=== PATIENT | female | born 1935 | race Caucasian/White ===

== ENCOUNTER → 2016-09-30 | Outpatient (CLI) | payer BC ==
[~2016-09-30] MED LIST: CALCTAB5 PO; CHOL100010 PO; DIPH1LIQ2 PO; FEXO1TAB49 PO; METO1TAB69 PO; MULT-506 PO; SERT1TAB68 PO; SIMV20TA5 PO; WARF5TAB7 PO; [UNRECOGNIZED DRUG - OTHER] PO
--- NOTE | 2016-09-30 15:57 | DIAGNOSTIC IMAGING REPORT ---
RIGHT LOWER EXTREMITY VENOUS DOPPLER HISTORY: Right leg swelling. COMPARISON STUDY: None. FINDINGS: There is normal compressibility, flow, and augmentation within the visualized right lower extremity deep venous system. The posterior tibial vein was unable to visualized. The popliteal vein and calf vessels were not well visualized due to the patient's body habitus but appear to be patent. IMPRESSION: No definite DVT within the visualized right lower extremity Electronically signed by: Dean Palomino M.D. 09/30/2016 3:56 PM Dictated Date/Time: 09/30/2016 3:55 PM
== END | disposition home or self-care (01) ==
LOC: C.ULTR 15:36
PROVIDERS: ATTEND Family Medicine
DX: M79.604 Pain in right leg (principal)

== ENCOUNTER → 2016-11-08 | Outpatient (CLI) | payer BC ==
[~2016-11-08] MED LIST changes: +METO100T44 PO; -METO1TAB69 PO
--- NOTE | 2016-11-08 11:23 | DIAGNOSTIC IMAGING REPORT ---
CHEST 2 VIEWS ROUTINE CLINICAL HISTORY: COUGH/R09.89 ABNORMAL PHYSICAL EXAMINATION COMPARISON STUDY: 05/29/2015, CT scan dated 04/15/2016 FINDINGS: The heart is mildly enlarged. Surgical clips project over the right axillary region. There is mild interstitial thickening similar to the prior study. There is no lobar consolidation. There is an 8 mm opacity near the level the left lateral costophrenic angle. This likely represents a summation. No nodule was visualized in this area on the April 2016 CT scan.[ IMPRESSION: Mild chronic interstitial thickening. No evidence of overt failure. No evidence of acute parenchymal consolidation. Electronically signed by: Manfred Newell M.D. 11/08/2016 11:22 AM Dictated Date/Time: 11/08/2016 11:20 AM
== END | disposition home or self-care (01) ==
LOC: C.RAD1850 11:04
PROVIDERS: ATTEND Nurse Practitioner Family
DX: R05 Cough (principal); R09.89 Other specified symptoms and signs involving the circulatory and respiratory systems

== ENCOUNTER → 2016-12-13 | Outpatient (CLI) | payer BC | END | disposition home or self-care (01) | LOC: C.MAMM 08:00 | PROVIDERS: ATTEND Family Medicine | DX: Z13.820 Encounter for screening for osteoporosis (principal); M85.851 Other specified disorders of bone density and structure, right thigh ==

== ENCOUNTER → 2017-11-23 | Outpatient (CLI) | payer BC ==
--- NOTE | 2017-11-23 09:37 | DIAGNOSTIC IMAGING REPORT ---
R SHOULDER MIN 2 VIEWS ROUTINE CLINICAL HISTORY: PAIN IN RIGHT SHOULDER pain COMPARISON: None. DISCUSSION: Mild degenerative changes acromioclavicular as well as glenohumeral joints. Postoperative surgical clips in the right axillary region. Upper right lung is clear. No acute bony abnormality. There is no evidence for soft tissue swelling. IMPRESSION: Mild degenerative change right shoulder. Postoperative soft tissue change right axilla. No acute process. The above report was generated using voice recognition software. It may contain grammatical, syntax or spelling errors. Electronically signed by: Mandeep Lubin M.D. 11/23/2017 9:35 AM Dictated Date/Time: 11/23/2017 9:35 AM
== END | disposition home or self-care (01) ==
LOC: C.RAD1850 09:25
PROVIDERS: ATTEND Family Medicine
DX: M25.511 Pain in right shoulder (principal)

== ENCOUNTER → 2018-02-21 | Outpatient (CLI) | payer BC ==
[2018-02-21 08:15] LABS: BASO % 0.4 %; BASO ABS # 0.02 K/uL (0-0.2); EOS % 3.5 %; EOS ABS # 0.17 K/uL (0-0.5); HEMATOCRIT 41.7 % (37-47); HEMOGLOBIN 13.7 g/dL (12.0-16.0); IG# 0.01 K/uL (0.00-0.02); LYMPH % 24.1 %; LYMPH ABS # 1.18 K/uL (1.2-3.4); MEAN CORPUSCULAR HEMOGLOBIN 31.2 pg (25-34); MEAN CORPUSCULAR HGB CONC 32.9 g/dl (32-36); MEAN PLATELET VOLUME 9.6 fL (7.4-10.4); MONO ABS # 0.39 K/uL (0.11-0.59); NEUT % 63.8 %; NEUT ABS # 3.12 K/uL (1.4-6.5); PLATELET COUNT 186 K/uL (130-400); RED CELL DISTRIBUTION WIDTH CV 13.9 % (11.5-14.5); RED CELL DISTRIBUTION WIDTH SD 48.2 fL (36.4-46.3); WHITE BLOOD COUNT 4.89 K/uL (4.8-10.8)
[2018-02-21 08:36] LABS: ALBUMIN 3.8 gm/dl (3.4-5.0); ALKALINE PHOSPHATASE 56 U/L (45-117); ALT/SGPT 23 U/L (12-78); AST/SGOT 23 U/L (15-37); BLOOD UREA NITROGEN 23 mg/dl (7-18); CALCIUM 8.8 mg/dl (8.5-10.1); CARBON DIOXIDE 29 mmol/L (21-32); GLUCOSE 81 mg/dl (70-99); POTASSIUM 3.9 mmol/L (3.5-5.1); SODIUM 141 mmol/L (136-145); TOTAL PROTEIN 7.6 gm/dl (6.4-8.2)
== END | disposition home or self-care (01) ==
LOC: C.CCL 07:54
PROVIDERS: ATTEND Internal Medicine Hematology & Oncology
DX: C50.912 Malignant neoplasm of unspecified site of left female breast (principal)

== ENCOUNTER 2021-07-11 11:40 | Observation (INO) ==
--- NOTE | 2021-07-11 12:57 | XRay Report ---
XR chest 1V portable HISTORY: weakness COMPARISON: Chest 03/20/2015. FINDINGS: No pneumothorax. No pleural effusions. The heart remains mildly enlarged. Small linear scar like density within the left lower lobe. No new focal lung consolidations to suggest pneumonia. There are surgical clips within the right axilla. No evidence for pulmonary edema. IMPRESSION: No significant change compared to the prior study. No acute process. Stable cardiomegaly. ACT 112: Negative or not required by law. Electronically signed by: Dean Palomino M.D. 07/11/2021 12:56 PM
[2021-07-11 13:29] LABS: Basophils # (auto) 0.01 K/uL (0-0.2); Basophils % (auto) 0.1 %; Hemoglobin 13.8 g/dL (12.0-16.0); Immature Granulocytes # (auto) 0.07 K/uL (0.00-0.02); Immature Granulocytes % (auto) 0.5 %; Lymphocytes % (auto) 2.8 %; Mean Corpuscular Hemoglobin 31.3 pg (25-34); Mean Corpuscular Hgb Conc 32.9 g/dL (32-36); Mean Corpuscular Volume 95.2 fL (80-100); Mean Platelet Volume 9.9 fL (7.4-10.4); Monocytes # (auto) 0.75 K/uL (0.11-0.59); Monocytes % (auto) 5.2 %; Neutrophils # (auto) 13.24 K/uL (1.4-6.5); Neutrophils % (auto) 91.4 %; Platelet Count 159 K/uL (130-400); RDW Coefficient of Variation 14.4 % (11.5-14.5); RDW Standard Deviation 50.8 fL (36.4-46.3); Red Blood Count 4.41 M/uL (4.2-5.4); White Blood Count 14.47 K/uL (4.8-10.8)
--- NOTE | 2021-07-11 13:31 | Emergency Department Note ---
Impression & Plan Cellulitis of right lower extremity, Weakness ED Provider Note Provider: Sean Bullard MD DATE OF SERVICE: 07/11/2021 CHIEF COMPLAINT: Weakness, leg weeping and swelling, confusion HISTORY OF PRESENT ILLNESS: Patient is a 85-year-old female history of CHF, DVT on Coumadin, and [place] area presenting here today via ambulance after becoming somewhat confused earlier in becoming weak. No significant falls reported the patient was lowered to the ground and was unable to get up. Daughter and patient both states that the patient seemed a bit slow and confused earlier little bit better now. Daughter states her speech is low but slurred but that is improved. No significant trauma reported. They have noted some leaking of clear fluid from her right leg overnight as well as significant redness developing here. Patient denies any trauma here. Patient has a history of cellulitis or infections of the leg. Denies any history of diabetes or MRSA to her knowledge. Patient had some nausea earlier as well but denies any now denies any abdominal pain. Denies chest pain or significant shortness of breath at this time. Denies any swelling of the left lower leg but states the right lo wer leg is swollen and again red. REVIEW OF SYSTEMS: A total of 10 review of systems was obtained and negative except as stated above in the HPI. PAST MEDICAL HISTORY: As noted above MEDICATIONS: Reviewed home medications SOCIAL HISTORY: Lives at home with daughter PHYSICAL EXAM: GENERAL: alert and oriented in no acute distress on stretcher Head: normocephalic and atraumatic EYES: No injection, discharge or icterus. NECK: Trachea midline. ENT: Mucous membranes pink and moist. LUNGS: Airway patent. No retractions. Breath sounds clear HEART: Regular rate and rhythm. No chest wall tenderness ABDOMEN: Soft and non-tender, without guarding or rebound. SKIN: Acyanotic, warm, dry EXTREMITIES: Patient with 1+ edema of the right lower extremity with significant erythema from the right midfoot to the proximal right upper leg. No large wounds or fluctuance appreciated. Not significantly tender. No crepitus. Warm to the touch. Left foot is without erythema or significant swelling. NEUROLOGICAL: No focal deficits. No aphasia. No facial droop or slurred speech. Normal strength and tone in the extremities. Sensation to gross touch normal. Ambulatory. EK bpm normal sinus rhythm. No PVC or PAC. No acute ST segment elevation or depression with some nonspecific anterior T wave changes. QTC 450. CONTINUOUS CARDIAC MONITORING: was ordered and showed a heart rate of 60-70s bpm in normal sinus rhythm Patient's laboratory studies and imaging reviewed. Differential includes Fracture, dislocation, contusion, intra-abdominal, pneumothorax, intrathoracic, intracranial, neurologic, compartment syndrome, rhabdomyolysis, as well as other pathologies. IMPRESSION/MEDICAL DECISION MAKING: Some confusion and slurred speech earlier that resolved. Doubt this is acute CVA. Given her anticoagulation status CT the head completed without acute findings per radiology. Blood work obtained. Leukocytosis noted. Right lower leg appears erythematous but I doubt this represent necrotizing fasciitis. No large wound or fluctuance concerning for abscess. Anticoagulated and doubt DVT. Asymmetric swelling with a chest x-ray and BNP lower suspicion for fluid overload at this time. No significant serous discharge from leg appreciated on my exam here but reported by daughter earlier. Question if her symptoms were related to cellulitis and generalized infection. Benign abdomen here on exam today. Again blood work otherwise reassuring and doubt this is ACS or gastroint estinal in nature. Covid test negative. Covered with antibiotics here. While she is somewhat improved now in regards to her weakness/confusion, given her age with her anticoagulation status and weakness earlier as well as significant cellulitis believe intravenous antibiotics and further observation are indicated. The hospitalist was contacted. DIAGNOSIS: Right lower leg cellulitis, weakness DISPOSITION: Hospitalist will evaluate Patient was agreeable with this plan. 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 Beliefs That Will Affect Care: None marital status: / Current Living Situation: Family current occupational status: retired Feels Safe at Home: Yes Assistive Devices: Cane, Glasses and Walker Allergies Allergies Allergy/AdvReac Type Severity Reaction Status Date / Time furosemide Allergy Intermediate HIVES Verified 07/11/21 13:55 capsaicin Allergy Mild HIVES Verified 07/11/21 13:55 diclofenac Allergy Mild HIVES Verified 07/11/21 13:55 Diclopak Allergy Mild HIVES Unverified 12/01/20 13:31 hydrochlorothiazide Allergy Mild RASH Verified 07/11/21 13:55 verapamil Allergy Mild RASH Verified 07/11/21 13:55 pseudoephedrine Allergy Unknown SVT Verified 07/11/21 13:55 Sulfa (Sulfonamide Allergy Unknown "SULFA Verified 07/11/21 13:55 Antibiotics) DRUGS": "HIVES" bupropion Allergy Verified 07/11/21 13:55 Home Meds Home Medications Medication Instructions Recorded Confirmed alendronate 70 mg tablet 70 mg PO WEEKLY tab 03/22/19 07/11/21 cholecalciferol (vitamin D3) 50 2,000 units PO HS tab 03/22/19 07/11/21 mcg (2,000 unit) tablet epinephrine 0.3 mg/0.3 mL See Rx Instructions IM .COMPLEX ea 03/22/19 07/11/21 injection, auto-injector levothyroxine 100 mcg tablet 100 mcg PO QAM tab 03/22/19 07/11/21 metoprolol succinate 100 mg 100 mg PO QAM tab 03/22/19 07/11/21 tablet,extended release 24 hr simvastatin 20 mg tablet 20 mg PO HS tab 03/22/19 07/11/21 calcium carbonate 600 mg-vitamin 1 tab PO HS 05/22/20 07/11/21 D3 5 mcg (200 unit) tablet warfarin 5 mg tablet See Rx Instructions .ROUTE .COMPLEX 05/22/20 07/11/21 multivitamin 1 tab PO DAILY 07/11/21 07/11/21 warfarin 1 mg tablet See Rx Instructions .ROUTE .COMPLEX 07/11/21 07/11/21 Previous Rx's Medication Instructions Recorded omalizumab 150 mg subcutaneous 300 mg SUBCUT Q4WK #2 ea 04/27/21 solution Results & Data (ED) Vital Signs Vital Signs - 24 hr 07/11/21 11:52 07/11/21 13:54 Temperature 36.3 C L Temperature Source Temporal Artery Scan Pulse Rate 76 66 Pulse Rate from SpO2 Sensor 66 Respiratory Rate 20 25 H Respiratory Effort / Characteristics Non-Labored Spontaneous Respiratory Depth Normal Respiratory Pattern Regular Blood Pressure 139/61 143/58 H Blood Pressure Mean 87 86 Pulse Oximetry 94 95 Oxygen Delivery Method Room Air Sepsis Recent Fever Within 48 Hours No Sepsis New/Unexplained Change in Mental Status No Sepsis Action Taken by Nursing No Action Required Laboratory Data Result diagrams: 07/11/21 12:15 07/11/21 12:15 Lab Results 07/11/21 07/11/21 07/11/21 Range/Units 12:15 12:15 12:15 WBC 14.47 H (4.8-10.8) K/uL RBC 4.41 (4.2-5.4) M/uL Hgb 13.8 (12.0-16.0) g/dL Hct 42.0 (37-47) % MCV 95.2 (80-100) fL MCH 31.3 (25-34) pg MCHC 32.9 (32-36) g/dL RDW Std Deviation 50.8 H (36.4-46.3) fL RDW Coeff of Sara 14.4 (11.5-14.5) % Plt Count 159 (130-400) K/uL MPV 9.9 (7.4-10.4) fL Immature Gran % (Auto) 0.5 % Neut % (Auto) 91.4 % Lymph % (Auto) 2.8 % [place] % (Auto) 5.2 % Eos % (Auto) 0.0 % Baso % (Auto) 0.1 % Neut # (Auto) 13.24 H (1.4-6.5) K/uL Lymph # (Auto) 0.40 L (1.2-3.4) K/uL [place] # (Auto) 0.75 H (0.11-0.59) K/uL Eos # (Auto) 0.00 (0-0.5) K/uL Baso # (Auto) 0.01 (0-0.2) K/uL Immature Gran # (Auto) 0.07 H (0.00-0.02) K/uL PT Cancelled INR Cancelled Sodium 137 (136-145) mmol/L Potassium 4.0 (3.5-5.1) mmol/L Chloride 103 (98-107) mmol/L Carbon Dioxide 28 (21-32) mmol/L Anion Gap 6.0 (3-11) BUN 24 H (7-18) mg/dl Creatinine 0.85 (0.6-1.2) mg/dl Est Cr Clr Drug Dosing Not Reportable Est GFR ( Amer) 72.9 ml/min Est GFR (Non-Af Amer) 62.9 ml/min BUN/Creatinine Ratio 27.8 H (10-20) Glucose 106 H (70-99) mg/dl Lactate (0.4-2.0) mmol/L Calcium 9.1 (8.5-10.1) mg/dl Total Bilirubin 0.9 (0.2-1) mg/dl AST 19 (15-37) U/L ALT 22 (12-78) Alkaline Phosphatase 60 (45-117) U/L Troponin I < 0.015 (0-0.045) ng/ml NT-Pro-B Natriuret Pep 1356 (0-1800) pg/ml Total Protein 7.9 (6.4-8.2) gm/dl Albumin 3.5 (3.4-5.0) gm/dl Globulin 4.4 H (2.5-4.0) gm/dl Albumin/Globulin Ratio 0.8 L (0.9-2) Lipase 48 L (73-393) U/L 07/11/21 07/11/21 Range/Units 12:15 14:16 WBC (4.8-10.8) K/uL RBC (4.2-5.4) M/uL Hgb (12.0-16.0) g/dL Hct (37-47) % MCV (80-100) fL MCH (25-34) pg MCHC (32-36) g/dL RDW Std Deviation (36.4-46.3) fL RDW Coeff of Sara (11.5-14.5) % Plt Count (130-400) K/uL MPV (7.4-10.4) fL Immature Gran % (Auto) % Neut % (Auto) % Lymph % (Auto) % [place] % (Auto) % Eos % (Auto) % Baso % (Auto) % Neut # (Auto) (1.4-6.5) K/uL Lymph # (Auto) (1.2-3.4) K/uL [place] # (Auto) (0.11-0.59) K/uL Eos # (Auto) (0-0.5) K/uL Baso # (Auto) (0-0.2) K/uL Immature Gran # (Auto) (0.00-0.02) K/uL PT 33.5 H INR 3.7 H Sodium (136-145) mmol/L Potassium (3.5-5.1) mmol/L Chloride (98-107) mmol/L Carbon Dioxide (21-32) mmol/L Anion Gap (3-11) BUN (7-18) mg/dl Creatinine (0.6-1.2) mg/dl Est Cr Clr Drug Dosing Est GFR ( Amer) ml/min Est GFR (Non-Af Amer) ml/min BUN/Creatinine Ratio (10-20) Glucose (70-99) mg/dl Lactate 1.1 (0.4-2.0) mmol/L Calcium (8.5-10.1) mg/dl Total Bilirubin (0.2-1) mg/dl AST (15-37) U/L ALT (12-78) Alkaline Phosphatase (45-117) U/L Troponin I (0-0.045) ng/ml NT-Pro-B Natriuret Pep (0-1800) pg/ml Total Protein (6.4-8.2) gm/dl Albumin (3.4-5.0) gm/dl Globulin (2.5-4.0) gm/dl Albumin/Globulin Ratio (0.9-2) Lipase (73-393) U/L Administered Medications Discontinued Medications Ceftriaxone Sodium (Rocephin) 2,000 mg in 70 mls @ 140 mls/hr IV NOW STA Stop: 07/11/21 14:23 Last Infusion: 07/11/21 14:54 Dose: 0 mls/hr Documented by: [id number] Admin: 07/11/21 14:09 Dose: 140 mls/hr Documented by: [id number] Vancomycin HCl 2,000 mg/ (Sodium Chloride) 540 mls @ 200 mls/hr IV NOW ONE Stop: 07/11/21 17:01 Last Admin: 07/11/21 15:43 Dose: Not Given Documented by: [id number] Imaging Data Radiologist's Impression: Chest X-Ray 07/11/21 12:42 XR chest 1V portable HISTORY: weakness COMPARISON: Chest 03/20/2015. FINDINGS: No pneumothorax. No pleural effusions. The heart remains mildly enlarged. Small linear scarlike density within the left lower lobe. No new focal lung consolidations to suggest pneumonia. There are surgical clips within the right axilla. No evidence for pulmonary edema. IMPRESSION: No significant change compared to the prior study. No acute process. Stable cardiomegaly. ACT 112: Negative or not required by law. Electronically signed by: Dean Palomino M.D. 07/11/2021 12:[address] 07/11/21 12:[address] DOSE: 614.27 mGy.cm HISTORY: weakness on coumadin TECHNIQUE: Multiaxial CT images of the head were performed without the use of intravenous contrast. Automated exposure control was utilized for this study. A dose lowering technique was utilized adhering to the principles of ALARA. Comparison: Head CT 10/06/2020. Findings: The paranasal sinuses and mastoid air cells are clear. The calvarium and skull base are intact. There is no mass, hematoma, midline shift, acute infarct. White matter hypodensity is nonspecific but suggestive of microvascular ischemic change. The ventricles and sulci demonstrate mild age-related involutional changes. Impression: No significant change compared to the prior study. No acute intracranial abnormality. ACT 112: Negative or not required by law. Electronically signed by: Dean Palomino M.D. 07/11/2021 1:40 PM Venous Doppler Study 07/11/21 15:08 RIGHT LOWER EXTREMITY VENOUS DOPPLER CLINICAL HISTORY: Right lower extremity pain and erythema. COMPARISON STUDY: Right lower extremity venous Doppler ultrasound September 30, 2016. TECHNIQUE: Sonography of the deep venous system of the right lower extremity was performed. Compression and augmentation were evaluated. FINDINGS: The right common femoral, superficial femoral and popliteal veins were compressible. Augmentation was normal. Flow was shown within the deep calf vessels although the calf vessels were suboptimally assessed on this exam. IMPRESSION: No evidence of deep venous thrombus within the right lower extremity. ACT 112: Negative or not required by law. Electronically signed by: Juan Carlos Chávez M.D. 07/11/2021 4:10 PM Discharge Plan Visit Data Chief Complaint: Illness ED Provider: Sean Bullard Discharge Problem: Cellulitis of right lower extremity, Weakness Patient Disposition: Admitted As Inpatient Discharge Instructions Interventions: ED Discharge Assessment Last Done: 07/11/21 17:32
--- NOTE | 2021-07-11 13:41 | CT Scan Report ---
HEAD CT NONCONTRAST CT DOSE: 614.27 mGy.cm HISTORY: weakness on coumadin TECHNIQUE: Multiaxial CT images of the head were performed without the use of intravenous contrast. A utomated exposure control was utilized for this study. A dose lowering technique was utilized adheri ng to the principles of ALARA. Comparison: Head CT 10/06/2020. Findings: The paranasal sinuses and mastoid air cells are clear. The calvarium and skull base are int act. There is no mass, hematoma, midline shift, acute infarct. White matter hypodensity is nonspecifi c but suggestive of microvascular ischemic change. The ventricles and sulci demonstrate mild age-rela mary carmen involutional changes. Impression: No significant change compared to the prior study. No acute intracranial abnormality. ACT 112: Negative or not required by law. Electronically signed by: Dean Palomino M.D. 07/11/2021 1:40 PM
[2021-07-11 13:48] LABS: Alanine Aminotransferase 22 (12-78); Albumin Level 3.5 gm/dl (3.4-5.0); Aspartate Aminotransferase 19 U/L (15-37); BUN Creatinine Ratio 27.8 (10-20); Blood Urea Nitrogen 24 mg/dl (7-18); Calcium 9.1 mg/dl (8.5-10.1); Carbon Dioxide 28 mmol/L (21-32); Chloride 103 mmol/L (98-107); Est GFR (African American) 72.9 ml/min; Est GFR (Non-African American) 62.9 ml/min; Glucose 106 mg/dl (70-99); Lipase 48 U/L (73-393); Sodium 137 mmol/L (136-145)
[2021-07-11 13:53] LABS: Albumin Globulin Ratio 0.8 (0.9-2); Alkaline Phosphatase 60 U/L (45-117); Bilirubin,Total 0.9 mg/dl (0.2-1); Globulin 4.4 gm/dl (2.5-4.0); NT Pro B Type Natriuretic Pept 1356 pg/ml (0-1800); Total Protein 7.9 gm/dl (6.4-8.2); Troponin I < 0.015 ng/ml (0-0.045)
[2021-07-11] MEDS ORDERED: cefTRIAXone SODIUM 2,000 MG/70 ML BAG IV STA (13:54)
[2021-07-11] MEDS ORDERED: VANCOMYCIN HCL 2,000 MG in SODIUM CHLORIDE 0.9% 500 ML IV ONE (14:20)
[2021-07-11] MEDS ORDERED: VANCOMYCIN CONSULT ACTIVE PRN (14:20)
--- NOTE | 2021-07-11 15:00 | History & Physical Report ---
Date of Service July 11, 2021 Assessment & Plan (1) Cellulitis of right lower extremity: Plan: Ceftriaxone 2g IV daily, no history of MRSA therefore will hokd coverage for this currently PT/OT (2) Fall: Plan: PT/OT Suspect secondary to cellulitis. Consider ankle XR if unable to weight bear however no pain on ankle movements in the ER (3) History of DVT (deep vein thrombosis): Plan: Repeat US venous doppler Continue her chronic warfarin regimen (hold todays dose due to INR 3.7). Repeat tomorrow morning for continued dosing. (4) History of supraventricular tachycardia: Plan: Continue her usual metoprolol succinate 100mg PO daily with hold parameters (5) Hypothyroidism: Plan: TSH with AM labs as none previously on file. Continue levothyroxine 100 mcg PO daily (6) Hyperlipidemia: Plan: Continue simvastatin 20mg PO daily (7) Osteoporosis: Plan: Next due Fosamax on Monday Plan: VTE Prophylaxis - Warfarin (currently supratherapeutic) Diet - regular Disposition - observation status to med/surg Admission and Anticipated Discharge Date Admission Date: July 11, 2021 History of Present Illness Chief Complaint: Fall, cellulitis Primary Care Provider: Freddie Sanabria MD Mohini Sibley is an 85 year old female who presents to the ER via EMS from home due to nausea, vomiting, generalized weakness and discharge from her leg. History was mostly taken from her daughter at bedside. She reports worsening right leg swelling and redness over the last 2 days. She has been getting generally weaker over that time in addition and slipped off her chair this morning prompting her ER visit. She denies any loss of consciousness, dizziness or lightheadedness on standing. No chest pain or shortness of breath. 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 In the ER she was noted to have a RLE cellulitis and started on ceftriaxone 2g IV. She was referred to medicine for admission and ongoing management of this as deemed unsafe to return home at this time. Allergies Allergy/AdvReac Type Severity Reaction Status Date / Time furosemide Allergy Intermediate HIVES Verified 07/11/21 13:55 capsaicin Allergy Mild HIVES Verified 07/11/21 13:55 diclofenac Allergy Mild HIVES Verified 07/11/21 13:55 Diclopak Allergy Mild HIVES Unverified 12/01/20 13:31 hydrochlorothiazide Allergy Mild RASH Verified 07/11/21 13:55 verapamil Allergy Mild RASH Verified 07/11/21 13:55 pseudoephedrine Allergy Unknown SVT Verified 07/11/21 13:55 Sulfa (Sulfonamide Allergy Unknown "SULFA Verified 07/11/21 13:55 Antibiotics) DRUGS": "HIVES" bupropion Allergy Verified 07/11/21 13:55 Home Medications Medication Instructions Recorded Confirmed Type alendronate 70 mg tablet 70 mg PO WEEKLY tab 03/22/19 07/11/21 History cholecalciferol (vitamin D3) 50 2,000 units PO HS tab 03/22/19 07/11/21 History mcg (2,000 unit) tablet epinephrine 0.3 mg/0.3 mL See Rx Instructions IM .COMPLEX ea 03/22/19 07/11/21 History injection, auto-injector levothyroxine 100 mcg tablet 100 mcg PO QAM tab 03/22/19 07/11/21 History metoprolol succinate 100 mg 100 mg PO QAM tab 03/22/19 07/11/21 History tablet,extended release 24 hr simvastatin 20 mg tablet 20 mg PO HS tab 03/22/19 07/11/21 History calcium carbonate 600 mg-vitamin 1 tab PO HS 05/22/20 07/11/21 History D3 5 mcg (200 unit) tablet warfarin 5 mg tablet See Rx Instructions .ROUTE .COMPLEX 05/22/20 07/11/21 History omalizumab 150 mg subcutaneous 300 mg SUBCUT Q4WK #2 ea 04/27/21 07/11/21 Rx solution multivitamin 1 tab PO DAILY 07/11/21 07/11/21 History warfarin 1 mg tablet See Rx Instructions .ROUTE .COMPLEX 07/11/21 07/11/21 History Past Med/Surg History Medical History (Updated 07/12/21 @ 07:11 by Desean Gongora MD) Degenerative arthritis Hx of breast cancer 1985 and surgical intervention and then 1990 and surgical intervention and had chemo Hyperlipidemia Hypertension Hypothyroidism Osteoporosis Spinal stenosis Supraventricular tachycardia takes metoprolol Surgical History H/O mastectomy right and left History of cataract surgery LEFT Hx of colonoscopy Family History Other Hypertension Social History Smoking Status: Never smoker Second Hand Exposure: No; Hx Alcohol Use: No Hx Substance Use: No Preferred Language: Thai Communication Ability: Effective Diet Kitchen Cook Required: No Beliefs That Will Affect Care: None marital status: / Current Living Situation: Family current occupational status: retired Feels Safe at Home: Yes Assistive Devices: Walker Review of Systems Review of Systems: All systems reviewed & are unremarkable except as noted in HPI & below Physical Exam Constitutional: well developed and + morbidly obese; + not well nourished and no acute distress Eyes: PERRL, conjunctivae normal, anicteric sclerae ENMT: external ear and nose normal, oropharynx normal Neck: trachea midline, no thyromegaly Respiratory: normal respiratory effort, lungs clear to auscultation Cardiovascular: Rate/Rhythm: regular rate and regular rhythm Heart Sounds: no murmur Extremities: normal capillary refill and + pedal edema (trace ankles b/l equal); no calf tenderness Gastrointestinal (Abdomen): normal bowel sounds, soft, nontender, no hepatosplenomegaly Musculoskeletal: no cyanosis or clubbing, extremities motor strength 5/5 Skin: + erythema (mid krishna to ankle with associated warmth but no swelling) Neurologic: moves all extremities and awake; no focal motor deficits and not confused Cranial Nerves: PERRL, EOM intact bilaterally, normal facial strength, tongue midline, able to rotate head bilaterally, able to elevate shoulders bilaterally and symmetric palate elevation Psychiatric: A+Ox3, euthymic affect Results & Data Results & Data ([facility]) Vital Signs (Past 12 Hours) Vital Signs Temp Pulse Resp BP Pulse Ox 07/11/21 13:54 66 25 H 143/58 H 95 07/11/21 11:52 36.3 C L 76 20 139/61 94 Laboratory Results Abnormal lab results 07/11/21 07/11/21 07/11/21 Range/Units 12:15 12:15 14:16 WBC 14.47 H (4.8-10.8) K/uL RDW Std Deviation 50.8 H (36.4-46.3) fL Neut # (Auto) 13.24 H (1.4-6.5) K/uL Lymph # (Auto) 0.40 L (1.2-3.4) K/uL [place] # (Auto) 0.75 H (0.11-0.59) K/uL Immature Gran # (Auto) 0.07 H (0.00-0.02) K/uL PT 33.5 H (9.0-12.0) Seconds INR 3.7 H (0.9-1.1) BUN 24 H (7-18) mg/dl BUN/Creatinine Ratio 27.8 H (10-20) Glucose 106 H (70-99) mg/dl Globulin 4.4 H (2.5-4.0) gm/dl Albumin/Globulin Ratio 0.8 L (0.9-2) Lipase 48 L (73-393) U/L Diagnostic Findings HEAD CT NONCONTRAST CT DOSE: 614.27 mGy.cm HISTORY: weakness on coumadin TECHNIQUE: Multiaxial CT images of the head were performed without the use of intravenous contrast. Automated exposure control was utilized for this study. A dose lowering technique was utilized adhering to the principles of ALARA. Comparison: Head CT 10/06/2020. Findings: The paranasal sinuses and mastoid air cells are clear. The calvarium and skull base are intact. There is no mass, hematoma, midline shift, acute infarct. White matter hypodensity is nonspecific but suggestive of microvascular ischemic change. The ventricles and sulci demonstrate mild age-related involutional changes. Impression: No significant change compared to the prior study. No acute intracranial abnormality. XR chest 1V portable HISTORY: weakness COMPARISON: Chest 03/20/2015. FINDINGS: No pneumothorax. No pleural effusions. The heart remains mildly enlarged. Small linear scarlike density within the left lower lobe. No new focal lung consolidations to suggest pneumonia. There are surgical clips within the right axilla. No evidence for pulmonary edema. IMPRESSION: No significant change compared to the prior study. No acute process. Stable cardiomegaly. Medications Administered ER Medications Given: Ceftriaxone 2000mg IV Vancomycin prescribed but not given ECG Rate (beats per minute): 66 Rhythm: normal sinus Findings: + LAFB Comparison ECG Date: from (April 15, 2016) Change: no significant change Code Status & VTE Plan Code Status Full VTE Prophylaxis Plan VTE Prophylaxis will be ordered: Yes PG Care Time/CCT Total # of Minutes Spent Total Time Spent with Patient: Total time spent is greater than 50% in coordination of care (as documented) at patient's floor/unit and/or counseling patient: Coding Level of Care Code INT OBSERVATION CARE 50M LVL 2 Diagnoses Cellulitis of right lower extremity L03.115 History of DVT (deep vein thrombosis) Z86.718 History of supraventricular tachycardia Z86.79 Hypothyroidism E03.9 Fall W19.XXXA Hyperlipidemia E78.5 Osteoporosis M81.0
[2021-07-11 15:08] LABS: INR 3.7 (0.9-1.1); Prothrombin Time 33.5 Seconds (9.0-12.0)
--- NOTE | 2021-07-11 16:11 | Ultrasound Report ---
RIGHT LOWER EXTREMITY VENOUS DOPPLER CLINICAL HISTORY: Right lower extremity pain and erythema. COMPARISON STUDY: Right lower extremity venous Doppler ultrasound September 30, 2016. TECHNIQUE: Sonography of the deep venous system of the right lower extremity was performed. Compress ion and augmentation were evaluated. FINDINGS: The right common femoral, superficial femoral and popliteal veins were compressible. Augme ntation was normal. Flow was shown within the deep calf vessels although the calf vessels were subopt imally assessed on this exam. IMPRESSION: No evidence of deep venous thrombus within the right lower extremity. ACT 112: Negative or not required by law. Electronically signed by: Juan Carlos Chávez M.D. 07/11/2021 4:10 PM
[2021-07-11] MEDS ORDERED: POLYETHYLENE (MIRALAX) 17 GM PACK PO PRN (17:38)
[2021-07-11] MEDS ORDERED: ACETAMINOPHEN 325 MG TAB PO PRN (17:38)
[2021-07-11] MEDS ORDERED: ONDANSETRON INJ 2 MG/ML 2 ML VIAL IV PRN (17:38)
[2021-07-11] MEDS ORDERED: cefTRIAXone SODIUM 2,000 MG in DEXTROSE 5% 50 ML IV SCH (18:00)
[2021-07-11] MEDS: CHOLECALCIFEROL 1,000 UNITS 25 MCG TAB PO SCH (20:36)
[2021-07-11] MEDS: SIMVASTATIN 20 MG TAB PO SCH (20:36)
[2021-07-11] MEDS: CALCIUM 600MG + VIT D 400 IU TAB PO SCH (20:36)
[2021-07-12] MEDS: LEVOTHYROXINE SODIUM 100 MCG TABLET PO SCH (05:50)
[2021-07-12 08:11] LABS: Basophils # (auto) 0.01 K/uL (0-0.2); Basophils % (auto) 0.1 %; Eosinophils # (auto) 0.05 K/uL (0-0.5); Eosinophils % (auto) 0.5 %; Hematocrit (blood only) 38.6 % (37-47); Hemoglobin 12.9 g/dL (12.0-16.0); Immature Granulocytes # (auto) 0.03 K/uL (0.00-0.02); Immature Granulocytes % (auto) 0.3 %; Lymphocytes % (auto) 6.5 %; Mean Corpuscular Hemoglobin 31.9 pg (25-34); Mean Corpuscular Hgb Conc 33.4 g/dL (32-36); Mean Corpuscular Volume 95.3 fL (80-100); Mean Platelet Volume 10.1 fL (7.4-10.4); Monocytes # (auto) 0.72 K/uL (0.11-0.59); Monocytes % (auto) 6.7 %; Neutrophils # (auto) 9.26 K/uL (1.4-6.5); Neutrophils % (auto) 85.9 %; Platelet Count 148 K/uL (130-400); RDW Coefficient of Variation 14.9 % (11.5-14.5); RDW Standard Deviation 52.4 fL (36.4-46.3); Red Blood Count 4.05 M/uL (4.2-5.4); White Blood Count 10.77 K/uL (4.8-10.8)
[2021-07-12 08:19] LABS: INR 3.9 (0.9-1.1); Prothrombin Time 35.2 Seconds (9.0-12.0)
[2021-07-12] MEDS: MULTIVITAMIN TAB PO SCH (08:40)
[2021-07-12] MEDS: METOPROLOL SUCC 50MG EXT REL TAB PO SCH (08:40)
[2021-07-12 09:13] LABS: BUN Creatinine Ratio 31.1 (10-20); Calcium 8.7 mg/dl (8.5-10.1); Creatinine Clr Calc Pharmacy 53.3 ml/min; Est GFR (African American) 71.9 ml/min; Potassium 3.3 mmol/L (3.5-5.1); Thyroid Stimulating Hormone 0.875 uIu/ml (0.300-4.500)
[2021-07-12] MEDS ORDERED: cefTRIAXone SODIUM 2,000 MG in DEXTROSE 5% 50 ML IV SCH (14:00)
--- NOTE | 2021-07-12 14:06 | Hospitalist Progress Note ---
Date of Service July 12, 2021 Assessment & Plan (1) Cellulitis of right lower extremity: Plan: - Site is warm to touch and presented with leukocytosis which has now resolved; patient reporting better movement of her lower extremity which is making it easier to be mobile - Leukocytosis resolved - Continue Rocephin 2 g IV daily and monitor; no H/O MRSA so will hold additional coverage at this time - PT/OT consulted - no inpatient OT needs; awaiting PT evaluation (2) Fall: Plan: - PT/OT - Suspect secondary to cellulitis (3) History of DVT (deep vein thrombosis): Plan: - Repeat US venous doppler - no evidence of DVT - INR elevated at 3.9 - continue to hold Warfarin and recheck in AM (4) History of supraventricular tachycardia: Plan: - Continue metoprolol succinate 100 mg daily (5) Hypothyroidism: Plan: - TSH 0.875 - Continue levothyroxine 100 mcg daily (6) Hyperlipidemia: Plan: - Continue simvastatin 20 mg daily (7) Osteoporosis: Plan: - Fosamax due on Monday Plan: VTE Prophylaxis - Warfarin (currently supratherapeutic) Disposition - Will monitor cellulitis overnight; plan to convert to oral Abx on discharge. Do not anticipate home needs; Possible D/C tomorrow Admission and Anticipated Discharge Date Admission Date: July 11, 2021 Subjective Reports feeling well today. Not having any additional seeping from RLE today. Feels she did well this therapy and able to stand up today and moving better. RLE remains erythematous and warm to touch. INR remains elevated and no signs of bleeding at this time. Review of Systems Review of Systems: All systems reviewed & are unremarkable except as noted in Subjective Physical Exam Physical Exam: PHYSICAL EXAM General Appearance: WDWN in NAD who is A&O x 3 HEENT: Head is normocephalic/atraumatic; Hearing grossly intact; Mucous membranes moist Neck: Supple; Trachea midline; Neg JVD Heart: RRR with no M/G/R Lungs: CTA in all lung garcia bilaterally; Respirations unlabored; Neg accessory muscle use Abdomen: Soft, non-tender, non-distended; Positive BS x 4 quadrants Extremities: Neg cyanosis or edema; Erythema of the RLE warm to touch and present about 2 inch down from the tibial plateau and on the lateral aspect of the RLE; No drainage Neurological: Speech clear; Gross motor/sensory function intact; Neg focal neurologic deficits Psychiatric: Appropriate mood/affect Skin: Normal Color; Warm/Dry; except as described above Results & Data Results & Data ([facility]) Vital Signs (Past 12 Hours) Vital Signs Temp Pulse Resp BP Pulse Ox 07/12/21 06:56 36.7 C 59 L 20 134/72 96 PG Care Time/CCT Total # of Minutes Spent Total Time Spent with Patient: Total time spent is greater than 50% in coordination of care (as documented) at patient's floor/unit and/or counseling patient: Coding Level of Care Code 24888 Subseq Obs Care Lvl 2 Diagnoses Cellulitis of right lower extremity L03.115 Fall W19.XXXA History of DVT (deep vein thrombosis) Z86.718 History of supraventricular tachycardia Z86.79 Hypothyroidism E03.9 Hyperlipidemia E78.5 Osteoporosis M81.0
--- NOTE | 2021-07-12 15:49 | Electrocardiogram Report ---
Test Reason : Blood Pressure : / mmHG Vent. Rate : 066 BPM Atrial Rate : 066 BPM P-R Int : 160 ms QRS Dur : 092 ms QT Int : 430 ms P-R-T Axes : 043 -51 025 degrees QTc Int : 450 ms Poor data quality, interpretation may be adversely affected Normal sinus rhythm Left anterior fascicular block Nonspecific T wave abnormality Abnormal ECG When compared with ECG of 15-APR-2016 09:40, No significant change was found Confirmed by Ramakrishna Gonzalez ([id number]) on 07/12/2021 3:49:19 PM Referred By: REFERRED SELF Confirmed By:Ramakrishna Gonzalez
[2021-07-12] MEDS ORDERED: WARFARIN SOD 5 MG TAB PO SCH (16:00)
[2021-07-12] MEDS: SIMVASTATIN 20 MG TAB PO SCH (20:57)
[2021-07-12] MEDS: CALCIUM 600MG + VIT D 400 IU TAB PO SCH (20:57)
[2021-07-12] MEDS: CHOLECALCIFEROL 1,000 UNITS 25 MCG TAB PO SCH (20:58)
[2021-07-13] MEDS: LEVOTHYROXINE SODIUM 100 MCG TABLET PO SCH (06:11)
[2021-07-13 06:53] LABS: INR 2.6 (0.9-1.1); Prothrombin Time 24.2 Seconds (9.0-12.0)
[2021-07-13] MEDS: METOPROLOL SUCC 50MG EXT REL TAB PO SCH (08:35)
[2021-07-13] MEDS: MULTIVITAMIN TAB PO SCH (08:35)
--- NOTE | 2021-07-13 16:17 | Hospitalist Progress Note ---
Date of Service July 13, 2021 Assessment & Plan (1) Cellulitis of right lower extremity: Plan: - Site is warm to touch and presented with leukocytosis which has now resolved; patient reporting better movement of her lower extremity which is making it easier to be mobile - Leukocytosis resolved - Utilized Rocephin 2 g IV daily will switch to Keflex 500 mg BID for renal dosing; no H/O MRSA so will hold additional coverage at this time and seems to be improving without MRSA coverage - PT/OT consulted - no inpatient PT/OT needs (2) Fall: Plan: - PT/OT - Suspect secondary to cellulitis (3) History of DVT (deep vein thrombosis): Plan: - Repeat US venous doppler - no evidence of DVT - INR now normalized - continue Warfarin and trend INR (4) History of supraventricular tachycardia: Plan: - Continue metoprolol succinate 100 mg daily (5) Hypothyroidism: Plan: - TSH 0.875 - Continue levothyroxine 100 mcg daily (6) Hyperlipidemia: Plan: - Continue simvastatin 20 mg daily (7) Osteoporosis: Plan: - Fosamax due on Monday Plan: VTE Prophylaxis - Warfarin Disposition - Do not anticipate home needs; Possible D/C tomorrow Admission and Anticipated Discharge Date Admission Date: July 11, 2021 Subjective Reports doing well today. Erythema has not expanded and not as red or warm to touch today. Rechecked her this afternoon and continues to feel well. She is tolerating a diet without issue. Ambulating well. No pain in the leg. Review of Systems Review of Systems: All systems reviewed & are unremarkable except as noted in Subjective Physical Exam Physical Exam: PHYSICAL EXAM General Appearance: WDWN in NAD who is A&O x 3 HEENT: Head is normocephalic/atraumatic; Hearing grossly intact; Mucous membranes moist Neck: Supple; Trachea midline; Neg JVD Heart: RRR with no M/G/R Lungs: CTA in all lung garcia bilaterally; Respirations unlabored; Neg accessory muscle use Abdomen: Soft, non-tender, non-distended; Positive BS x 4 quadrants Extremities: Neg cyanosis or edema; Erythema of the RLE not warm to touch today and receding down from the tibial plateau approx 4 inches and on the lateral aspect of the RLE is unchanged but more pink today; No drainage Neurological: Speech clear; Gross motor/sensory function intact; Neg focal neurologic deficits Psychiatric: Appropriate mood/affect Skin: Normal Color; Warm/Dry; except as described above Results & Data Results & Data ([facility]) Vital Signs (Past 12 Hours) Vital Signs Temp Pulse Resp BP BP Pulse Ox 07/13/21 15:26 36.8 C 60 18 163/84 H 96 07/13/21 07:46 37.0 C 54 L 18 124/72 94 PG Care Time/CCT Total # of Minutes Spent Total Time Spent with Patient: Total time spent is greater than 50% in coordination of care (as documented) at patient's floor/unit and/or counseling patient: Coding Level of Care Code 37227 Subseq Hosp Care Lvl 2 Diagnoses Cellulitis of right lower extremity L03.115 Fall W19.XXXA History of DVT (deep vein thrombosis) Z86.718 History of supraventricular tachycardia Z86.79 Hypothyroidism E03.9 Hyperlipidemia E78.5 Osteoporosis M81.0
[2021-07-13] MEDS: cephALEXin 500 MG CAP PO SCH (20:52)
[2021-07-13] MEDS: SIMVASTATIN 20 MG TAB PO SCH (20:52)
[2021-07-13] MEDS: CHOLECALCIFEROL 1,000 UNITS 25 MCG TAB PO SCH (20:52)
[2021-07-13] MEDS: CALCIUM 600MG + VIT D 400 IU TAB PO SCH (20:52)
[2021-07-14] MEDS: LEVOTHYROXINE SODIUM 100 MCG TABLET PO SCH (06:06)
[2021-07-14] MEDS: MULTIVITAMIN TAB PO SCH (08:11)
[2021-07-14] MEDS: cephALEXin 500 MG CAP PO SCH (08:12)
[2021-07-14 08:21] LABS: Prothrombin Time 19.1 Seconds (9.0-12.0)
[2021-07-14 08:38] LABS: Creatinine Clr Calc Pharmacy 55.9 ml/min; Est GFR (African American) 76.2 ml/min; Est GFR (Non-African American) 65.7 ml/min
[2021-07-14] MEDS: METOPROLOL SUCC 50MG EXT REL TAB PO SCH (09:42)
--- NOTE | 2021-07-14 16:01 | Discharge Summary ---
Date of Service July 14, 2021 Admission HPI Per Admitting Provider Mohini Sibley is an 85 year old female who presents to the ER via EMS from home due to nausea, vomiting, generalized weakness and discharge from her leg. History was mostly taken from her daughter at bedside. She reports worsening right leg swelling and redness over the last 2 days. She has been getting generally weaker over that time in addition and slipped off her chair this morning prompting her ER visit. She denies any loss of consciousness, dizziness or lightheadedness on standing. No chest pain or shortness of breath. 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 In the ER she was noted to have a RLE cellulitis and started on ceftriaxone 2g IV. She was referred to medicine for admission and ongoing management of this as deemed unsafe to return home at this time. Principal Diagnosis RLE Cellulitis Discharge Exam PHYSICAL EXAM General Appearance: WDWN in NAD who is A&O x 3 HEENT: Head is normocephalic/atraumatic; Hearing grossly intact; Mucous membranes moist Neck: Supple; Trachea midline; Neg JVD Heart: RRR with no M/G/R Lungs: CTA in all lung garcia bilaterally; Respirations unlabored; Neg accessory muscle use Abdomen: Soft, non-tender, non-distended; Positive BS x 4 quadrants Extremities: Neg cyanosis or edema; Erythema of the RLE not warm to touch today and receding down from the tibial plateau approx 4-5 inches and on the lateral aspect of the RLE is unchanged but more pink today; No drainage; Has chronic venous changes of the krishna that is purple in color Neurological: Speech clear; Gross motor/sensory function intact; Neg focal neurologic deficits Psychiatric: Appropriate mood/affect Skin: Normal Color; Warm/Dry; except as described above Discharge Data Allergies Allergy/AdvReac Type Severity Reaction Status Date / Time furosemide Allergy Intermediate HIVES Verified 07/11/21 13:55 capsaicin Allergy Mild HIVES Verified 07/11/21 13:55 diclofenac Allergy Mild HIVES Verified 07/11/21 13:55 Diclopak Allergy Mild HIVES Unverified 12/01/20 13:31 hydrochlorothiazide Allergy Mild RASH Verified 07/11/21 13:55 verapamil Allergy Mild RASH Verified 07/11/21 13:55 pseudoephedrine Allergy Unknown SVT Verified 07/11/21 13:55 Sulfa (Sulfonamide Allergy Unknown "SULFA Verified 07/11/21 13:55 Antibiotics) DRUGS": "HIVES" bupropion Allergy Verified 07/11/21 13:55 Consultations 07/11/21 14:34 ED Decision to Admit Stat Ordered Studies Chest X-Ray 07/11/21 12:42 XR chest 1V portable HISTORY: weakness COMPARISON: Chest 03/20/2015. FINDINGS: No pneumothorax. No pleural effusions. The heart remains mildly enlarged. Small linear scarlike density within the left lower lobe. No new focal lung consolidations to suggest pneumonia. There are surgical clips within the right axilla. No evidence for pulmonary edema. IMPRESSION: No significant change compared to the prior study. No acute process. Stable cardiomegaly. ACT 112: Negative or not required by law. Electronically signed by: Dean Palomino M.D. 07/11/2021 12:[address] 07/11/21 12:[address] DOSE: 614.27 mGy.cm HISTORY: weakness on coumadin TECHNIQUE: Multiaxial CT images of the head were performed without the use of intravenous contrast. Automated exposure control was utilized for this study. A dose lowering technique was utilized adhering to the principles of ALARA. Comparison: Head CT 10/06/2020. Findings: The paranasal sinuses and mastoid air cells are clear. The calvarium and skull base are intact. There is no mass, hematoma, midline shift, acute infarct. White matter hypodensity is nonspecific but suggestive of microvascular ischemic change. The ventricles and sulci demonstrate mild age-related involutional changes. Impression: No significant change compared to the prior study. No acute intracranial abnormality. ACT 112: Negative or not required by law. Electronically signed by: Dean Palomino M.D. 07/11/2021 1:40 PM Venous Doppler Study 07/11/21 15:08 RIGHT LOWER EXTREMITY VENOUS DOPPLER CLINICAL HISTORY: Right lower extremity pain and erythema. COMPARISON STUDY: Right lower extremity venous Doppler ultrasound September 30, 2016. TECHNIQUE: Sonography of the deep venous system of the right lower extremity was performed. Compression and augmentation were evaluated. FINDINGS: The right common femoral, superficial femoral and popliteal veins were compressible. Augmentation was normal. Flow was shown within the deep calf vessels although the calf vessels were suboptimally assessed on this exam. IMPRESSION: No evidence of deep venous thrombus within the right lower extremity. ACT 112: Negative or not required by law. Electronically signed by: Juan Carlos Chávez M.D. 07/11/2021 4:10 PM Hospital Course (1) Cellulitis of right lower extremity: - Site was warm to touch and presented with leukocytosis; patient reporting better movement of her lower extremity which is making it easier to be mobile - Leukocytosis resolved; Erythema reducing and not warm to touch - Utilized Rocephin 2 g IV daily and switched to Keflex 500 mg BID for renal dosing x 10 additional days; no H/O MRSA so will hold additional coverage at this time and seems to be improving without MRSA coverage -- Recommended leg elevation to assist with keeping swelling down - PT/OT consulted - no inpatient PT/OT needs (2) Fall: - PT/OT - Suspect secondary to cellulitis (3) History of DVT (deep vein thrombosis): - Repeat US venous doppler - no evidence of DVT - INR now normalized - continue Warfarin and trend INR (4) History of supraventricular tachycardia: - Continue metoprolol succinate 100 mg daily (5) Hypothyroidism: - TSH 0.875 - Continue levothyroxine 100 mcg daily (6) Hyperlipidemia: - Continue simvastatin 20 mg daily (7) Osteoporosis: - Fosamax due on Monday VTE Prophylaxis - Warfarin Disposition - Discharged home with oral Abx; F/U next week with PCP prior to Abx completing Total Time Total Time Spent Total Time Spent (In Minutes): Spent greater than 30 minutes preparing patient for discharge. This includes discussion with patient/family, assessment, intervention, medication reconciliation, and coordination of care. Discharge Plan Discharge Items Patient Disposition: Home - Self-Care Reason For Visit: CELLULITIS, FALL Discharge Diagnosis: Cellulitis (Skin Infection) Activity: Resume your previous activity Non-emergency contact: Primary Care Provider Call non-emergency contact if: you have any medication questions, your symptoms worsen and you have a fever Follow-up/Referrals: Freddie Sanabria MD [Primary Care Provider] - 07/21/21 10:30 am (APPT WITH DR ANGELO) Diet: Regular Addtl Attending Provider Instructions: Cellulitis (Skin Infection): - You were admitted for a skin infection of the right leg. Sometimes even the smallest cut in the skin or even very dry skin can allow bacteria to get under the skin causing problems. - You do have some coloration changes that are likely due to what we call venous stasis meaning the veins in the legs are not as good which causes some purple/red coloration to the skin that is there all the time. This can also make you prone to swelling - We are going to continue Keflex (Cephalexin) 500 mg twice a day until July 23. You had one dose this morning so only need to take this once today on 07/14 then resume twice a day on 07/15 until completed. - We did get a follow-up with your family doctor office on the [address] they can look to see if any longer antibiotics are needed or any adjustments - It will be important to also keep your legs elevated when sitting down to help reduce swelling. If compression socks are not a bother you can use those as they can help push any swelling out of the legs and help with better circulation History of Blood Clot: - You had an ultrasound of your right leg and no signs of blood clots were in there. They looked at the flow especially into the deep calf vessels and this shown but they were not as easy to see but they do not see clots. - Did discuss with your family doctor. He would like to review everything before making and decision on blood thinners which is very reasonable and this can be discussed at your next appointment. They may even want to reassess once infection is done with an ultrasound to verify - Infections can make you a little bit more prone to building clots so it may be best to await the infection completion first. Dr. Sanabria though will review - Your INR (Coumadin) level is at 2.0 so continue your home medications as previously prescribed and will need to follow-up with your family doctor office for your next coumadin check Home Medications: - Continue your home medications as previously prescribed. We did not make adjustments to these Pending Studies at Discharge: No Stand-Alone Forms: My [facility] Medications and DC Order Prescriptions: New cephalexin 500 mg Capsule 500 mg PO BID Qty: 19 RF: 0 Continued omalizumab 150 mg recon soln 300 mg subcut Q4WK Qty: 2 RF: 11 epinephrine 0.3 mg/0.3 mL auto-injector See Rx Instructions IM .COMPLEX RF: 0 alendronate 70 mg tablet 70 mg PO WEEKLY RF: 0 levothyroxine 100 mcg tablet 100 mcg PO QAM RF: 0 simvastatin 20 mg tablet 20 mg PO HS RF: 0 metoprolol succinate 100 mg tablet extended release 24 hr 100 mg PO QAM RF: 0 cholecalciferol (vitamin D3) 2,000 unit tablet 2,000 units PO HS RF: 0 calcium carbonate-vitamin D3 600 mg(1,500mg) -200 unit Tablet 1 tab PO HS RF: 0 warfarin 5 mg Tablet See Rx Instructions .ROUTE .COMPLEX RF: 0 multivitamin Tablet 1 tab PO DAILY RF: 0 warfarin 1 mg tablet See Rx Instructions .ROUTE .COMPLEX RF: 0 Discharge Orders: Discharge Order (Routine); Ordered 07/14/21 Ordered By: Fransisca Khoury/Other Patient Handouts: Discharge Instructions for Cellulitis Admission Data Admit Date/Time: 07/13/21 16:07 Attending Provider: Yan Coulter Admit Provider: Desean Gongora Primary Care Provider: Freddie Sanabria Other Providers: Desean Gongora Other Interventions: Discharge Summary Assessment (RN) Last Done: 07/14/21 13:04 Supervising Physician Co-Signing Physician Notes Attending note: patient seen and examined with Fransisca Persaud PA-C. I agree with her discharge summary. I personally reviewed the labs and imaging findings. patient feeling much better, right leg is less red and less warm and pain nearly gone, she says she can now put weight on the right foot which is a big improvement no fever, eating well, breathing stable - RLE cellulitis: responded well to IV antibiotics, discharge home on course of Keflex Coding Level of Care Code D/C DAY MANAGEMENT >30 MINS Diagnoses Cellulitis of right lower extremity L03.115 Fall W19.XXXA History of DVT (deep vein thrombosis) Z86.718 History of supraventricular tachycardia Z86.79 Hypothyroidism E03.9 Hyperlipidemia E78.5 Osteoporosis M81.0
[2021-07-15] MEDS ORDERED: WARFARIN SOD 6 MG TAB PO SCH (16:00)
== END 2021-07-14 16:00 | disposition home or self-care (01) ==
LOC: 3N 11:40 → ED 11:40 → SUATTDRO 15:15 → 3N 17:32

== ENCOUNTER 2024-09-11 03:12 | Inpatient (IN) ==
--- NOTE | 2024-09-11 03:30 | Emergency Department Note ---
Impression & Plan Hypoxia ADMIT ED Provider Note HPI: History obtained from patient and patient's daughter at the bedside. The patient is a 88-year-old female with history of DVT, CHF, presents the emergency department with a chief complaint of dyspnea. Patient presents with her daughter at the bedside, they state that the patient developed cough and shortness of breath over the past several days that acutely worsened overnight to the point where the patient was having difficulty sleeping. Patient denies any chest pain but states she did have some earlier in the night. On arrival here to the ED the patient is stable on nasal cannula oxygen, she was reportedly hypoxic in the field to 83% on room air. Patient otherwise appears to be in no acute distress on my initial assessment, patient is afebrile on arrival. ROS: - Per HPI Differential Diagnosis: Pneumonia, viral upper respiratory infection with cough to include COVID-19, influenza A, acute bronchitis, acute CHF exacerbation, ACS, PE, amongst other potential pathologies. *Outpatient medications and allergy history reviewed. 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 Lab work shows a mild leukopenia at 3.88, hemoglobin is stable at 11.6, platelet count is slightly low at 113, venous blood gas shows a alkalotic pH at 7.45 with a normal pCO2 and normal pCO2. CMP does not show any evidence of any critical findings, troponin is mildly elevated at 14.8, EKG does not show any acute ischemic changes per my interpretation patient denies any current chest pain. Low suspicion for ACS. Viral panel testing was obtained the patient is positive for human metapneumovirus. I suspect this is likely the source of her cough and shortness of breath. Patient was given DuoNeb breathing treatment here in the ED for wheezing and coarse breath sounds, she was also given a dose of IV Solu-Medrol. Overall I suspect that the patient's symptoms are viral in nature, her chest x-ray is suggestive of some right-sided opacities. Will order procalcitonin and defer antibiotics to the inpatient team following my discussion with the on-call hospitalist, Dr. Shaw. Patient and her daughter at the bedside were in agreement for the patient to be admitted and the patient was placed for admission in stable condition. Consultants/Discussions held with other healthcare providers: -Hospitalist, Dr. Shaw Disposition discussion held by myself with: -Patient and patient's daughter at the bedside Critical care time: 36 minutes -Stabilization of hypoxia with a saturation of 86% on room air requiring supplemental oxygen/nasal cannula oxygen for correction, time spent at the bedside, interpretation of diagnostic studies, discussion with other healthcare providers and arrangement of admission. Diagnosis: 1. Hypoxia, acute 2. Human metapneumovirus positive PCR testing, acute 3. Cough, acute 4. Dyspnea, acute 5. Leukopenia, acute 6. Elevated high-sensitivity troponin level, acute Disposition: Admission Mandeep Logan DO Emergency Medicine Past Med/Surg History Problem List (Updated 09/11/24 @ 05:35 by Mandeep Logan DO) Hypoxia (Acute) Chronic idiopathic urticaria COVID-19 (Acute) Osteoporosis Hypothyroidism History of supraventricular tachycardia Hyperlipidemia Hypertension History of DVT (deep vein thrombosis) Cellulitis of right lower extremity (Acute) Encounter for monitoring omalizumab therapy Back pain (Acute) Breast cancer (Chronic ~1985) CHF (congestive heart failure) (Acute) DVT (deep venous thrombosis) (Acute) DVT (deep venous thrombosis) (Acute) Dyspnea (Acute) Intractable pain (Acute) Encounter for pre-operative examination Medical History Fall Weakness Hx of breast cancer Degenerative arthritis Supraventricular tachycardia Spinal stenosis Surgical History History of cataract surgery Hx of colonoscopy H/O mastectomy Family History Other Hypertension Social History Smoking Status: Never smoker Second Hand Exposure: No; Do You Dip or Chew Tobacco: No; Hx Alcohol Use: No Hx Substance Use: No Preferred Language: [place] Communication Ability: Effective 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 Required: No Beliefs That Will Affect Care: None marital status: / Current Living Situation: Family current occupational status: retired Feels Safe at Home: Yes Assistive Devices: Walker Allergies Allergies Allergy/AdvReac Type Severity Reaction Status Date / Time capsaicin Allergy Intermediate HIVES Verified 05/22/24 09:39 diclofenac Allergy Intermediate HIVES Verified 05/22/24 09:39 furosemide Allergy Intermediate HIVES Verified 05/22/24 09:39 hydrochlorothiazide Allergy Intermediate RASH Verified 05/22/24 09:39 Sulfa (Sulfonamide Allergy Intermediate "SULFA Verified 05/22/24 09:39 Antibiotics) DRUGS": "HIVES" verapamil Allergy Intermediate RASH Verified 05/22/24 09:39 bupropion Allergy Unknown Unknown Verified 05/22/24 09:39 pseudoephedrine AdvReac Severe SVT Verified 05/22/24 09:39 Home Meds Home Medications Medication Instructions Recorded Confirmed alendronate 70 mg tablet 70 mg PO WEEKLY 03/22/19 05/22/24 cholecalciferol (vitamin D3) 50 2,000 units PO HS 03/22/19 05/22/24 mcg (2,000 unit) tablet epinephrine 0.3 mg/0.3 mL See Rx Instructions IM .COMPLEX 03/22/19 05/22/24 injection, auto-injector levothyroxine 100 mcg tablet 100 mcg PO QAM 03/22/19 05/22/24 metoprolol succinate 100 mg 100 mg PO QAM 03/22/19 05/22/24 tablet,extended release 24 hr simvastatin 20 mg tablet 20 mg PO HS 03/22/19 05/22/24 calcium 600 mg (as 1 tab PO HS 05/22/20 05/22/24 carbonate)-vitamin D3 5 mcg (200 unit) tablet multivitamin 1 tab PO DAILY 07/11/21 05/22/24 lisinopril 5 mg tablet 5 mg PO DAILY 09/26/21 05/22/24 rivaroxaban 20 mg tablet (Xarelto) 20 mg PO QPM 09/26/21 05/22/24 Previous Rx's Medication Instructions Recorded benzonatate 100 mg capsule 200 mg (2 x 100 mg) PO TID PRN 09/14/22 cough #20 caps dexamethasone 6 mg tablet 6 mg PO DAILY #6 tabs 09/14/22 omalizumab 150 mg subcutaneous 300 mg subcut Q4WK #2 ea 06/14/24 solution Results & Data (ED) Vital Signs Vital Signs - 24 hr 09/11/24 03:19 09/11/24 03:25 09/11/24 03:26 Temperature 37.1 C 37.1 C Temperature Source Oral Oral Pulse Rate 65 66 Pulse Rate [Left Finger] 65 Respiratory Rate 22 22 Blood Pressure 127/59 L Blood Pressure [Left Arm] 127/59 L Blood Pressure Mean 81 Blood Pressure Mean [Left Arm] 81 Pulse Oximetry 96 98 Oxygen Delivery Method Nasal Cannula Nasal Cannula Oxygen Flow Rate 4 4 Sepsis Recent Fever Within 48 Hours No Sepsis New/Unexplained Change in Mental Status No Sepsis Action Taken by Nursing No Action Required 09/11/24 03:34 09/11/24 04:51 Temperature 37.1 C Temperature Source Oral Pulse Rate 65 Pulse Rate [Left Finger] 67 Respiratory Rate 22 25 H Blood Pressure Blood Pressure [Left Arm] 125/60 Blood Pressure Mean Blood Pressure Mean [Left Arm] 81 Pulse Oximetry 98 86 L Oxygen Delivery Method Nasal Cannula Room Air Oxygen Flow Rate 2 Sepsis Recent Fever Within 48 Hours Sepsis New/Unexplained Change in Mental Status Sepsis Action Taken by Nursing Laboratory Data 09/11/24 03:19 09/11/24 03:19 Lab Results 09/11/24 09/11/24 09/11/24 Range/Units 03:19 03:34 03:49 WBC 3.88 L (4.8-10.8) K/ul RBC 3.71 L (4.20-5.40) M/uL Hgb 11.6 L (12.0-16.0) g/dl Hct 35.1 L (37.0-47.0) % MCV 94.6 (80.0-100.0) fL MCH 31.3 (25.0-34.0) pg MCHC 33.0 (32.0-36.0) g/dL RDW Std Deviation 51.3 H (36.4-46.3) fL RDW Coeff of Sara 14.6 H (11.5-14.5) % Plt Count 113 L (130-400) K/uL MPV 10.3 (9.4-12.4) fL Immature Gran % (Auto) 0.3 % Neut % (Auto) 70.8 % Lymph % (Auto) 18.6 % Gilliam % (Auto) 9.5 % Eos % (Auto) 0.5 % Baso % (Auto) 0.3 % Neut # (Auto) 2.75 (1.40-6.50) K/uL Lymph # (Auto) 0.72 L (1.20-3.40) K/uL Gilliam # (Auto) 0.37 (0.11-0.59) K/uL Eos # (Auto) 0.02 (0.00-0.50) K/uL Baso # (Auto) 0.01 (0.00-0.20) K/uL Immature Gran # (Auto) 0.01 (0.01-0.20) K/uL VBG pH 7.45 H (7.36-7.41) VBG pCO2 42 (38-50) mmHg VBG pO2 50 mmHg VBG HCO3 29 mmol/L VBG O2 Saturation 86.4 % VBG Base Excess 4.7 mEq/L Sodium 136 (136-145) mmol/L Potassium 4.0 (3.5-5.1) mmol/L Chloride 104 (98-107) mmol/L Carbon Dioxide 26 (21-32) mmol/L Anion Gap 6 (3-11) BUN 28 H (6-23) mg/dl Creatinine 0.94 (0.6-1.2) mg/dl Est Cr Clr Drug Dosing 45.6 ml/min eGFR 58.73 BUN/Creatinine Ratio 29.8 H (10-20) Glucose 105 H (70-99(Fasting)) mg/dl Calcium 8.6 (8.6-10.3) mg/dl Total Bilirubin 0.7 (0.2-1.0) mg/dl AST 18 (13-39) U/L ALT 9 (7-52) U/L Alkaline Phosphatase 46 (34-104) U/L Troponin I High Sens 14.8 H (0-14) pg/ml B-Natriuretic Peptide 145 H (0-100) pg/ml Total Protein 6.8 (6.0-8.3) gm/dl Albumin 3.7 (3.4-5.0) gm/dl Globulin 3.1 (2.5-4.0) gm/dl Albumin/Globulin Ratio 1.2 (0.9-2) Lipase 8 L (11-82) U/L Adenovirus (PCR) Not Detected (NotDetected) B. pertussis DNA (PCR) Not Detected (NotDetected) B.parapertussis DNA PCR Not Detected (NotDetected) C. pneumoniae DNA (PCR) Not Detected (NotDetected) Coronavirus OC43 (PCR) Not Detected (NotDetected) Coronavirus HKU1 (PCR) Not Detected (NotDetected) Coronavirus 229E (PCR) Not Detected (NotDetected) SARS-CoV-2 (PCR) Not Detected (NotDetected) Coronavirus NL63 (PCR) Not Detected (NotDetected) Human Metapneumovir PCR DETECTED A (NotDetected) Influenza Type A (PCR) Not Detected (NotDetected) Influenza Type B (PCR) Not Detected (NotDetected) M. pneumoniae (PCR) Not Detected (NotDetected) Parainfluenza 1 (PCR) Not Detected (NotDetected) Parainfluenza 2 (PCR) Not Detected (NotDetected) Parainfluenza 3 (PCR) Not Detected (NotDetected) Parainfluenza 4 (PCR) Not Detected (NotDetected) RSV (PCR) Not Detected (NotDetected) Entero/Rhino (PCR) Not Detected (NotDetected) Administered Medications Discontinued Medications Albuterol (Albut/Ipratrop 3mg/0.5mg Neb 3 Ml Vial) 3 ml NEB NOW STA; Protocol Stop: 09/11/24 04:49 Last Admin: 09/11/24 05:07 Dose: 3 ml Documented By: JESSENIA Methylprednisolone (Methylprednisolone 125 Mg/2 Ml Vial) 125 mg IV NOW STA Stop: 09/11/24 04:49 Last Admin: 09/11/24 05:07 Dose: 125 mg Documented By: JESSENIA Imaging Data Radiologist's Impression: Chest X-Ray 09/11/24 03:19 EXAM: XR chest 1V portable CLINICAL HISTORY: Chest pain, nonspecific TECHNIQUE: An X-ray image of the chest is obtained in AP projection. COMPARISON: 09/14/2022 FINDINGS: Pulmonary Parenchyma: Right hilar and lower zone paracardiac newly developed opacities merging with parenchymal reticular pattern. Redemonstration of the right parenchymal atelectatic plates Progression of the bilateral hilar congestion and the parenchyma reticulations more on the right side. No pulmonary nodules are identified. No evidence of pleural effusion or pleural thickening. Heart and Mediastinum:Cardiac enlargement. Stable. Aortic knuckle atheromatous calcification and unfolded aorta stable. No mediastinal widening or masses. No hilar or mediastinal lymphadenopathy. Bony Thorax: Bony thorax appears intact without fractures or deformities. Soft Tissues: Soft tissues overlying the chest wall are unremarkable. Surgical clips is the right axilla. IMPRESSION: 1. Newly developed right hilar and lower zone paracardiac opacities possibly infectious/inflammatory, clinical correlation is advised. 2. Progression of the bilateral parenchyma reticulations. 3. Progression of the bilateral hilar congestion. 4. Cardiomegaly and aortic calcification unchanged since last study. Electronically signed by Delia Nava 09-11-2024 05:25 AM Discharge Plan Visit Data Chief Complaint: Illness Stated Complaint: ILL X 1 WEEK, COUGH, INCREASED WEAKNESS ED Provider: Mandeep Logan Discharge Problem: Hypoxia Forms Stand Alone Forms: My [facility] [email or web address] Prescriptions Prescriptions: No Action omalizumab 150 mg recon soln 300 mg subcut Q4WK Qty: 2 11RF Rx Instructions: APPROVED Approved under pharmacy benefit 04/03/24-06/02/25 Medical benefit 06/12/24-06/11/25 [id number] epinephrine 0.3 mg/0.3 mL auto-injector See Rx Instructions IM .COMPLEX Patient Comments: IM Inject once for anaphylaxis, repeat in 20 minutes as needed; Rx Instructions: IM Inject once for anaphylaxis, repeat in 20 minutes as needed; alendronate 70 mg tablet 70 mg PO WEEKLY Rx Instructions: TAKES SUNDAYS levothyroxine 100 mcg tablet 100 mcg PO QAM simvastatin 20 mg tablet 20 mg PO HS metoprolol succinate 100 mg tablet extended release 24 hr 100 mg PO QAM cholecalciferol (vitamin D3) 2,000 unit tablet 2,000 units PO HS calcium carbonate-vitamin D3 600 mg(1,500mg) -200 unit Tablet 1 tab PO HS multivitamin Tablet 1 tab PO DAILY lisinopril 5 mg tablet 5 mg PO DAILY Xarelto 20 mg tablet 20 mg PO QPM benzonatate 100 mg capsule 200 mg PO TID PRN (Reason: cough) Qty: 20 0RF dexamethasone 6 mg tablet 6 mg PO DAILY Qty: 6 0RF Referrals Referrals: Gary Sanabria MD [Primary Care Provider] -
[2024-09-11 03:48] LABS: Basophils # (auto) 0.01 K/uL (0.00-0.20); Basophils % (auto) 0.3 %; Eosinophils # (auto) 0.02 K/uL (0.00-0.50); Eosinophils % (auto) 0.5 %; Hematocrit (blood only) 35.1 % (37.0-47.0); Hemoglobin 11.6 g/dl (12.0-16.0); Immature Granulocytes # (auto) 0.01 K/uL (0.01-0.20); Immature Granulocytes % (auto) 0.3 %; Lymphocytes # (auto) 0.72 K/uL (1.20-3.40); Lymphocytes % (auto) 18.6 %; Mean Corpuscular Hemoglobin 31.3 pg (25.0-34.0); Mean Corpuscular Volume 94.6 fL (80.0-100.0); Mean Platelet Volume 10.3 fL (9.4-12.4); Monocytes # (auto) 0.37 K/uL (0.11-0.59); Monocytes % (auto) 9.5 %; Neutrophils # (auto) 2.75 K/uL (1.40-6.50); Neutrophils % (auto) 70.8 %; Platelet Count 113 K/uL (130-400); RDW Coefficient of Variation 14.6 % (11.5-14.5); RDW Standard Deviation 51.3 fL (36.4-46.3); Red Blood Count 3.71 M/uL (4.20-5.40); White Blood Count 3.88 K/ul (4.8-10.8)
[2024-09-11 03:56] LABS: Base Excess VBG 4.7 mEq/L; HCO3 VBG 29 mmol/L; Oxygen Saturation VBG 86.4 %; PCO2 VBG 42 mmHg (38-50); PO2 VBG 50 mmHg; pH VBG 7.45 (7.36-7.41)
[2024-09-11 04:00] LABS: Albumin Globulin Ratio 1.2 (0.9-2); Albumin Level 3.7 gm/dl (3.4-5.0); BUN Creatinine Ratio 29.8 (10-20); Bilirubin,Total 0.7 mg/dl (0.2-1.0); Calcium 8.6 mg/dl (8.6-10.3); Creatinine Clr Calc Pharmacy 45.6 ml/min; Globulin 3.1 gm/dl (2.5-4.0); Total Protein 6.8 gm/dl (6.0-8.3)
[2024-09-11 04:06] LABS: Troponin I High Sensitivity 14.8 pg/ml (0-14)
[2024-09-11 04:35] LABS: Adenovirus PCR Not Detected (NotDetected); Bordetella parapertussis PCR Not Detected (NotDetected); Bordetella pertussis PCR Not Detected (NotDetected); Chlamydia pneumoniae PCR Not Detected (NotDetected); Coronavirus 229E PCR Not Detected (NotDetected); Coronavirus CoV-2 (COVID19)PCR Not Detected (NotDetected); Coronavirus HKU1 PCR Not Detected (NotDetected); Coronavirus NL63 PCR Not Detected (NotDetected); Coronavirus OC43PCR Not Detected (NotDetected); Human Metapneumovirus PCR DETECTED (NotDetected); Influenza A PCR Not Detected (NotDetected); Influenza B PCR Not Detected (NotDetected); Mycoplasma pneumoniae PCR Not Detected (NotDetected); Parainfluenza Virus 1 PCR Not Detected (NotDetected); Parainfluenza Virus 2 PCR Not Detected (NotDetected); Parainfluenza Virus 3 PCR Not Detected (NotDetected); Parainfluenza Virus 4 PCR Not Detected (NotDetected); Respiratory Syncytial VirusPCR Not Detected (NotDetected); Rhinovirus/Enterovirus PCR Not Detected (NotDetected)
[2024-09-11] MEDS: methylPREDNISolone 125 MG/2 ML VIAL IV STA (05:07)
[2024-09-11] MEDS: ALBUT/IPRATROP 3MG/0.5MG NEB 3 ML VIAL NEB STA (05:07)
--- NOTE | 2024-09-11 05:11 | History & Physical Report ---
Date of Service September 11, 2024 Assessment & Plan (1) Hypoxia: Plan: 88yo female presenting with 3-4 days of progressive cough and SOB as well as generalized weakness, ambulatory dysfunction, poor appetite and decreased oral intake. Found to have Human Metapneumovirus infection Hypoxic per EMS on arrival at 83% on RA - now on NC with adequate oxygenation -Admit to medical -Maintain isolation precautions -Continue supplemental O2 as needed -Awaiting Procalcitonin results - if ELEVATED would initiate Azithromycin treatment -Tylenol PRN -Albuterol PRN -Tessalon PRN -Zofran PRN -PT/OT evaluation for generalized weakness and ambulatory dysfunction -Repeat troponin x 1 to assess trend. EKG with no ischemic changes Plan Hypothyroidism - chronic, stable -Continue Synthroid 100mcg po daily Hypertension - chronic, stable -Continue Lisinopril 5mg po daily -Continue Metoprolol 100mg po daily History of DVT - chronic, stable -Continue Xarelto 20mg po qPM Anxiety - chronic, stable -Continue Sertraline 100mg po daily Hyperlipidemia - chronic, stable -Continue Simvastatin 20mg po qHS F/E/N - saline lock, encourage fluids, electrolytes WNL, regular diet as tolerated Ppx - Continue Xarelto Code - Full per discussion with patient Dispo - Admit to medical History of Present Illness Chief Complaint: cough, SOB Primary Care Provider: Gary Sanabria MD Mohini Sibley is an 88yo female with history of HTN, HLP, Hypothyroidsim, DVT on Xarelto anticoagulation presenting with cough, congestion and SOB. Patient has been having cough for the last 3-4 days - productive for clear to yellow sputum. She has had generalized weakness with difficulty ambulating, poor appetite and decreased oral intake. This evening patient developed worsening cough and SOB as well as some nausea which brought her to the ER. +sick contacts - family members with similar symptoms EMS reported hypoxia 83% on room air Allergies Allergy/AdvReac Type Severity Reaction Status Date / Time capsaicin Allergy Intermediate HIVES Verified 05/22/24 09:39 diclofenac Allergy Intermediate HIVES Verified 05/22/24 09:39 furosemide Allergy Intermediate HIVES Verified 05/22/24 09:39 hydrochlorothiazide Allergy Intermediate RASH Verified 05/22/24 09:39 Sulfa (Sulfonamide Allergy Intermediate "SULFA Verified 05/22/24 09:39 Antibiotics) DRUGS": "HIVES" verapamil Allergy Intermediate RASH Verified 05/22/24 09:39 bupropion Allergy Unknown Unknown Verified 05/22/24 09:39 pseudoephedrine AdvReac Severe SVT Verified 05/22/24 09:39 Home Medications Medication Instructions Recorded Confirmed Type alendronate 70 mg tablet 70 mg PO WEEKLY 03/22/19 05/22/24 History cholecalciferol (vitamin D3) 50 2,000 units PO HS 03/22/19 05/22/24 History mcg (2,000 unit) tablet epinephrine 0.3 mg/0.3 mL See Rx Instructions IM .COMPLEX 03/22/19 05/22/24 History injection, auto-injector levothyroxine 100 mcg tablet 100 mcg PO QAM 03/22/19 05/22/24 History metoprolol succinate 100 mg 100 mg PO QAM 03/22/19 05/22/24 History tablet,extended release 24 hr simvastatin 20 mg tablet 20 mg PO HS 03/22/19 05/22/24 History calcium 600 mg (as 1 tab PO HS 05/22/20 05/22/24 History carbonate)-vitamin D3 5 mcg (200 unit) tablet multivitamin 1 tab PO DAILY 07/11/21 05/22/24 History lisinopril 5 mg tablet 5 mg PO DAILY 09/26/21 05/22/24 History rivaroxaban 20 mg tablet (Xarelto) 20 mg PO QPM 09/26/21 05/22/24 History benzonatate 100 mg capsule 200 mg (2 x 100 mg) PO TID PRN 09/14/22 05/22/24 Rx cough #20 caps dexamethasone 6 mg tablet 6 mg PO DAILY #6 tabs 09/14/22 05/22/24 Rx omalizumab 150 mg subcutaneous 300 mg subcut Q4WK #2 ea 06/14/24 Rx solution sertraline 100 mg tablet 100 mg PO DAILY 09/11/24 09/11/24 History Past Med/Surg History Problem List Hypoxia (Acute) Chronic idiopathic urticaria COVID-19 (Acute) Osteoporosis Hypothyroidism History of supraventricular tachycardia Hyperlipidemia Hypertension History of DVT (deep vein thrombosis) Cellulitis of right lower extremity (Acute) Encounter for monitoring omalizumab therapy Back pain (Acute) Breast cancer (Chronic ~1985) CHF (congestive heart failure) (Acute) DVT (deep venous thrombosis) (Acute) DVT (deep venous thrombosis) (Acute) Dyspnea (Acute) Intractable pain (Acute) Encounter for pre-operative examination Medical History Fall Weakness Hx of breast cancer 1985 and surgical intervention and then 1990 and surgical intervention and had chemo Degenerative arthritis Supraventricular tachycardia takes metoprolol Spinal stenosis Surgical History History of cataract surgery LEFT Hx of colonoscopy H/O mastectomy right and left Family History Other Hypertension Social History Smoking Status: Never smoker Second Hand Exposure: No; Do You Dip or Chew Tobacco: No; Hx Alcohol Use: No Hx Substance Use: No Preferred Language: Khmer Communication Ability: Effective [employer] Required: No Beliefs That Will Affect Care: None marital status: / Current Living Situation: Family current occupational status: retired Feels Safe at Home: Yes Assistive Devices: Walker Review of Systems Review of Systems: All systems reviewed & are unremarkable except as noted in HPI & below Physical Exam Physical Exam: General: patient resting comfortably, NAD, non-toxic in appearance, AA&O x 4 Skin: warm, dry, intact, no rashes or lesions HEENT: NC/AT, PERRL, EOMI, anicteric sclera, conjunctiva without injection, external ear normal to inspection and nontender, nares patent, moist mucus membranes, dentition intact, no oropharyngeal lesions, neck supple, trachea midline, no LAD, no thyromegaly, no JVD Heart: +S1/S2, regular, no m/r/g Lungs: equal air entry bilaterally, coarse breath sounds bilaterally, no wheezes or rales Abd: +BS, soft, NT/ND, no masses/organomegaly/ascites Ext: warm, 2+ pulses in UE/LE bilaterally, no clubbing/cyanosis or edema, dusky discoloration and venous changes of bilateral LE R > L Neuro: nonfocal, patient AA&O x 4, speech intact, no facial droop, moving all extremities on command with equal strength 5/5 Results & Data Results & Data Vital Signs (Past 12 Hours) Vital Signs Temp Pulse Pulse Resp BP BP Pulse Ox 09/11/24 04:51 37.1 C 67 25 H 125/60 86 L 09/11/24 03:34 65 22 98 09/11/24 03:26 66 09/11/24 03:25 37.1 C 65 22 127/59 L 98 09/11/24 03:19 37.1 C 65 22 127/59 L 96 O2 Del Method O2 Flow Rate 09/11/24 04:51 Room Air 09/11/24 03:34 Nasal Cannula 2 09/11/24 03:26 09/11/24 03:25 Nasal Cannula 4 09/11/24 03:19 Nasal Cannula 4 Laboratory Results Laboratory Results WBC 3.88 K/ul (4.8-10.8) L 09/11/24 03:19 RBC 3.71 M/uL (4.20-5.40) L 09/11/24 03:19 Hgb 11.6 g/dl (12.0-16.0) L 09/11/24 03:19 Hct 35.1 % (37.0-47.0) L 09/11/24 03:19 MCV 94.6 fL (80.0-100.0) 09/11/24 03:19 MCH 31.3 pg (25.0-34.0) 09/11/24 03:19 MCHC 33.0 g/dL (32.0-36.0) 09/11/24 03:19 RDW Std Deviation 51.3 fL (36.4-46.3) H 09/11/24 03:19 RDW Coeff of Sara 14.6 % (11.5-14.5) H 09/11/24 03:19 Plt Count 113 K/uL (130-400) L 09/11/24 03:19 MPV 10.3 fL (9.4-12.4) 09/11/24 03:19 Immature Gran % (Auto) 0.3 % 09/11/24 03:19 Neut % (Auto) 70.8 % 09/11/24 03:19 Lymph % (Auto) 18.6 % 09/11/24 03:19 [place] % (Auto) 9.5 % 02/05/25 03:19 Eos % (Auto) 0.5 % 09/11/24 03:19 Baso % (Auto) 0.3 % 09/11/24 03:19 Neut # (Auto) 2.75 K/uL (1.40-6.50) 09/11/24 03:19 Lymph # (Auto) 0.72 K/uL (1.20-3.40) L 09/11/24 03:19 [place] # (Auto) 0.37 K/uL (0.11-0.59) 09/11/24 03:19 Eos # (Auto) 0.02 K/uL (0.00-0.50) 09/11/24 03:19 Baso # (Auto) 0.01 K/uL (0.00-0.20) 09/11/24 03:19 Immature Gran # (Auto) 0.01 K/uL (0.01-0.20) 09/11/24 03:19 VBG pH 7.45 (7.36-7.41) H 09/11/24 03:49 VBG pCO2 42 mmHg (38-50) 09/11/24 03:49 VBG pO2 50 mmHg 09/11/24 03:49 VBG HCO3 29 mmol/L 09/11/24 03:49 VBG O2 Saturation 86.4 % 09/11/24 03:49 VBG Base Excess 4.7 mEq/L 09/11/24 03:49 Sodium 136 mmol/L (136-145) 09/11/24 03:19 Potassium 4.0 mmol/L (3.5-5.1) 09/11/24 03:19 Chloride 104 mmol/L (98-107) 09/11/24 03:19 Carbon Dioxide 26 mmol/L (21-32) 09/11/24 03:19 Anion Gap 6 (3-11) 09/11/24 03:19 BUN 28 mg/dl (6-23) H 09/11/24 03:19 Creatinine 0.94 mg/dl (0.6-1.2) 09/11/24 03:19 Est Cr Clr Drug Dosing 45.6 ml/min 09/11/24 03:19 eGFR 58.73 09/11/24 03:19 BUN/Creatinine Ratio 29.8 (10-20) H 09/11/24 03:19 Glucose 105 mg/dl (70-99(Fasting)) H 09/11/24 03:19 Calcium 8.6 mg/dl (8.6-10.3) 09/11/24 03:19 Total Bilirubin 0.7 mg/dl (0.2-1.0) 09/11/24 03:19 AST 18 U/L (13-39) 09/11/24 03:19 ALT 9 U/L (7-52) 09/11/24 03:19 Alkaline Phosphatase 46 U/L (34-104) 09/11/24 03:19 Troponin I High Sens 14.8 pg/ml (0-14) H 09/11/24 03:19 B-Natriuretic Peptide 145 pg/ml (0-100) H 09/11/24 03:49 Total Protein 6.8 gm/dl (6.0-8.3) 09/11/24 03:19 Albumin 3.7 gm/dl (3.4-5.0) 09/11/24 03:19 Globulin 3.1 gm/dl (2.5-4.0) 09/11/24 03:19 Albumin/Globulin Ratio 1.2 (0.9-2) 09/11/24 03:19 Lipase 8 U/L (11-82) L 09/11/24 03:19 Adenovirus (PCR) Not Detected (NotDetected) 09/11/24 03:34 B. pertussis DNA (PCR) Not Detected (NotDetected) 09/11/24 03:34 B.parapertussis DNA PCR Not Detected (NotDetected) 09/11/24 03:34 C. pneumoniae DNA (PCR) Not Detected (NotDetected) 09/11/24 03:34 Coronavirus OC43 (PCR) Not Detected (NotDetected) 09/11/24 03:34 Coronavirus HKU1 (PCR) Not Detected (NotDetected) 09/11/24 03:34 Coronavirus 229E (PCR) Not Detected (NotDetected) 09/11/24 03:34 SARS-CoV-2 (PCR) Not Detected (NotDetected) 09/11/24 03:34 Coronavirus NL63 (PCR) Not Detected (NotDetected) 09/11/24 03:34 Human Metapneumovir PCR DETECTED (NotDetected) A 09/11/24 03:34 Influenza Type A (PCR) Not Detected (NotDetected) 09/11/24 03:34 Influenza Type B (PCR) Not Detected (NotDetected) 09/11/24 03:34 M. pneumoniae (PCR) Not Detected (NotDetected) 09/11/24 03:34 Parainfluenza 1 (PCR) Not Detected (NotDetected) 09/11/24 03:34 Parainfluenza 2 (PCR) Not Detected (NotDetected) 09/11/24 03:34 Parainfluenza 3 (PCR) Not Detected (NotDetected) 09/11/24 03:34 Parainfluenza 4 (PCR) Not Detected (NotDetected) 09/11/24 03:34 RSV (PCR) Not Detected (NotDetected) 09/11/24 03:34 Entero/Rhino (PCR) Not Detected (NotDetected) 09/11/24 03:34 Impressions Chest X-Ray 09/11/24 03:19 EXAM: XR chest 1V portable CLINICAL HISTORY: Chest pain, nonspecific TECHNIQUE: An X-ray image of the chest is obtained in AP projection. COMPARISON: 09/14/2022 FINDINGS: Pulmonary Parenchyma: Right hilar and lower zone paracardiac newly developed opacities merging with parenchymal reticular pattern. Redemonstration of the right parenchymal atelectatic plates Progression of the bilateral hilar congestion and the parenchyma reticulations more on the right side. No pulmonary nodules are identified. No evidence of pleural effusion or pleural thickening. Heart and Mediastinum:Cardiac enlargement. Stable. Aortic knuckle atheromatous calcification and unfolded aorta stable. No mediastinal widening or masses. No hilar or mediastinal lymphadenopathy. Bony Thorax: Bony thorax appears intact without fractures or deformities. Soft Tissues: Soft tissues overlying the chest wall are unremarkable. Surgical clips is the right axilla. IMPRESSION: 1. Newly developed right hilar and lower zone paracardiac opacities possibly infectious/inflammatory, clinical correlation is advised. 2. Progression of the bilateral parenchyma reticulations. 3. Progression of the bilateral hilar congestion. 4. Cardiomegaly and aortic calcification unchanged since last study. Electronically signed by Delia Nava 09-11-2024 05:25 AM Code Status & VTE Plan VTE Prophylaxis Plan VTE Prophylaxis will be ordered: Yes PG Care Time/CCT Total # of Minutes Spent Total Time Spent with Patient: Total time spent is greater than 50% in coordination of care (as documented) at patient's floor/unit and/or counseling patient: Coding Level of Care Code 12018 INT INP/OBS CARE 3/75MIN Diagnoses Hypoxia R09.02
--- NOTE | 2024-09-11 05:25 | XRay Report ---
EXAM: XR chest 1V portable CLINICAL HISTORY: Chest pain, nonspecific TECHNIQUE: An X-ray image of the chest is obtained in AP projection. COMPARISON: 09/14/2022 FINDINGS: Pulmonary Parenchyma: Right hilar and lower zone paracardiac newly developed opacities merging with parenchymal reticular pattern. Redemonstration of the right parenchymal atelectatic plates Progression of the bilateral hilar congestion and the parenchyma reticulations more on the right side. No pulmonary nodules are identified. No evidence of pleural effusion or pleural thickening. Heart and Mediastinum:Cardiac enlargement. Stable. Aortic knuckle atheromatous calcification and unfolded aorta stable. No mediastinal widening or masses. No hilar or mediastinal lymphadenopathy. Bony Thorax: Bony thorax appears intact without fractures or deformities. Soft Tissues: Soft tissues overlying the chest wall are unremarkable. Surgical clips is the right axilla. IMPRESSION: 1. Newly developed right hilar and lower zone paracardiac opacities possibly infectious/inflammatory, clinical correlation is advised. 2. Progression of the bilateral parenchyma reticulations. 3. Progression of the bilateral hilar congestion. 4. Cardiomegaly and aortic calcification unchanged since last study. Electronically signed by Delia Nava 09-11-2024 05:25 AM
--- OUTSIDE RECORDS SUMMARY | 2024-09-11 08:26 | External Medical Summary | Continuity of Care Document ---
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 Name Role Phone Gary Sanabria Primary Care Physician [phone] Encounter [facility] [id number] Date(s): 08/12/24 - 08/12/24 [facility] [address] [facility] 207 [facility] [address] [facility] [address] [place] [address] [phone] Encounter Diagnosis Cellulitis, leg(Discharge Diagnosis) - 08/12/24 Discharge Disposition: Home or Self Care Attending Physician: DANIELLA Barksdale Kimberly A Allergies, Adverse Reactions, Alerts Substance Criticality Severity Reaction Reaction Severity Status sulfamethoxazole rash Act rubi buPROPion nausea Active Calan NORMAN Active hydrochlorothiazide rash/hives Active Voltaren hives Active Sudafed SVT Active Assessment and Plan Extracted from: Title:TeleHealth Visit Note Author:DANIELLA Barksdale Kimberly A Date:08/12/24 1.Cellulitis, leg STATUS:Acute, uncomplicated illness/injury Patient is a 88yo female evaluated today via telehealth. Patient scheduled through triage line earlier today. Daughter originallycalled as hermomis worriedaboutpossible cellulitisof herleft lower leg. ApparentlyDorothynoted a few days ago that her sock was wet with "clear" drainage. Injury is possible antecedentas patient states she shut the car door on that leg in the past with scab developed. She was itching her leg and pulled the scab off. The left leg is erythematous and daughter feels that is has been warmer to the touch as well.No fevers. No pain. She has been applying OTC lotion but no topical antibiotics or treatments DATA:Labs reviewed. GOAL:Maintain stability. PLAN:Cont current monitoring. Keep area clean May use Vaseline topically Cephalexin mg three times daily x 5 days ER precautions discussed in detail. Immunizations Given and Recorded Vaccine Date Status Refusal Reason influenza virus vaccine, inactivated 04/27/23 Give n influenza virus vaccine, inactivated 08/12/21 Give n influenza virus vaccine, inactivated 05/15/19 Give n influenza virus vaccine, inactivated 05/01/18 Give n influenza virus vaccine, inactivated 04/17/17 Give n influenza virus vaccine, inactivated 06/01/16 Give n influenza virus vaccine, inactivated 04/17/15 Give n influenza virus vaccine, inactivated 05/27/14 Give n influenza virus vaccine, inactivated 05/01/12 Give n influenza virus vaccine, inactivated 08/07/03 Coy rded influenza virus vaccine, inactivated 08/07/03 Coy rded influenza virus vaccine, inactivated 08/07/03 Coy rded influenza virus vaccine, inactivated 08/07/03 Coy rded SARS-CoV-2 (COVID-19) mRNA BNT-162b2 vax 1 05/17/21 Recorded SARS-CoV-2 (COVID-19) mRNA BNT-162b2 vax 2 04/26/21 Recorded tetanus/diphtheria/pertuss, acel (Tdap) 08/27/19 G iven tetanus/diphtheria/pertuss, acel (Tdap) 3 06/17/07 Recorded tetanus/diphtheria/pertuss, acel (Tdap) 10/07/06 R ecorded tetanus/diphtheria/pertuss, acel (Tdap) 06/13/05 R ecorded tetanus/diphtheria/pertuss, acel (Tdap) 06/13/05 R ecorded zoster vaccine, inactivated 08/27/19 Given zoster vaccine, inactivated 06/13/19 Given pneumococcal 13-valent vaccine 09/12/14 Given zoster vaccine live 08/07/10 Recorded pneumococcal 23-valent vaccine 06/13/05 Recorded Not Given Vaccine Date Status Refusal Reason tetanus/diphtheria/pertuss, acel (Tdap) 4 07/17/19 Not Given Patient Refuses 1Result Comment: 2022-01-13: Historical information-source unspecified 2Result Comment: 2021-05-06: Historical information-source unspecified 3Result Comment: 2021-03-18: Historical information-source unspecified 4Result Comment: pt left before shot could be given Medications calcium (as carbonate) 600 mg oral tablet Start: 03/06/19 3:52:00 PM EDT, Daily Start Date: 03/06/19 Status: Ordered cephalexin 500 mg oral capsule Start: 08/12/24 1:32:00 PM EST, 1 cap, PO, tid, Disp# 15 cap, Pharmacy: [id number] Start Date: 08/12/24 Stop Date: 08/17/24 Status: Ordered famotidine 40 mg oral tablet Start: 07/06/21 2:11:00 PM EST, 1 tab, PO, Daily, Disp# 90 tab, Refills: 2, Pharmacy: [facility] Start Date: 07/06/21 Status: Ordered levothyroxine 100 mcg (0.1 mg) oral tablet Start: 08/09/23 11:32:00 AM EST, 1 tab, PO, Daily, Disp# 90 tab, Refills: 4, Pharmacy: [facility] Start Date: 08/09/23 Status: Ordered lisinopril 5 mg oral tablet Start: 08/09/23 11:32:00 AM EST, 1 tab, PO, Daily, Disp# 90 tab, Refills: 4, Pharmacy: [facility] Start Date: 08/09/23 Stop Date: 11/01/24 Status: Ordered nystatin 100,000 units/g topical powder Start: 01/10/24 2:35:00 PM EDT, 1 appl, topical, tid, Disp# 30 g, Refills: 3, Pharmacy: [facility] Start Date: 01/10/24 Stop Date: 05/09/24 Status: Ordered sertraline 100 mg oral tablet Start: 11/09/23 2:41:00 PM EDT, 1 tab, PO, Daily, Disp# 90 tab, Refills: 4, Pharmacy: [facility] Start Date: 11/09/23 Stop Date: 02/01/25 Status: Ordered simvastatin 20 mg oral tablet Start: 01/31/24 5:10:00 PM EDT, 1 tab, PO, qhs, Disp# 90 tab, Refills: 4, Pharmacy: [facility] Start Date: 01/31/24 Status: Ordered Toprol-XL 100 mg oral tablet, extended release Start: 11/09/23 2:41:00 PM EDT, 1 tab, PO, Daily, Disp# 90 tab, Refills: 4, Pharmacy: [facility] Start Date: 11/09/23 Status: Ordered Vitamin D with Minerals oral tablet, chewable Start: 04/15/10 11:43:01 AM EDT, 1 tab, PO, Daily, Refills: 0, current medication from another provider Start Date: 04/15/10 Status: Ordered Vitamin D3 2000 intl units oral tablet Start: 02/28/12 9:03:00 AM EDT, 1 tab, PO, Daily Start Date: 02/28/12 Status: Ordered Xarelto 20 mg oral tablet Start: 08/09/23 11:32:00 AM EST, 1 tab, PO, qPM, Disp# 90 tab, Refills: 4, Pharmacy: [facility] Start Date: 08/09/23 Status: Ordered Xolair Start: 04/04/16 10:23:00 AM EDT, injection monthly Start Date: 04/04/16 Status: Ordered Mental Status 08/12/24 Barriers to Learning one year None evide nt Problem List Condition Confirmation Course Effective Dates Status H ealth Status Informant ANXIETY Confirmed Active Hip arthritis Confirmed Active Adult BMI 40.0-44.9 kg/sq m 1 Confirmed 04/19/24 Active Left carpal tunnel syndrome Confirmed Active Carpal tunnel syndrome, bilateral Confirmed Active CATARACT 2 Confirmed Active Chronic deep vein thrombosis (DVT) of lower extremity Confirmed Active Disorder of adrenal gland, unspecified 3 Confirmed Active Arteriosclerosis of aorta 4 Confirmed Active GERD without esophagitis Confirmed Active HTN (hypertension) Confirmed Active Intertrigo Confirmed Active Depression, major 5 Confirmed 04/19/24 Active OA - Osteoarthritis of spine Confirmed Active Class 3 severe obesity due to excess calories with body mass index (BMI) of 40.0 to 44.9 in adult Confirmed Active Osteoporosis Confirmed Active Pulmonary hypertension Confirmed Active Depression, major, recurrent Confirmed Active RVH - Right ventricular hypertrophy Confirmed Active Lumbar spinal stenosis Confirmed Active Subclinical hypothyroidism Confirmed Active VITAMIN D DEFICIENCY Confirmed Active Ambulatory dysfunction Confirmed Active Weight disorder Confirmed Active 1Added per [employer] Worker Review-JW-04/24/24 2left eye - early CT chest diagnostic wo con, CT abd pelvis wo contrast FINDINGS: Thickening of the adrenal glands suggests hyperplasia. CT chest diagnostic wo contrast, CT abd pelvis wo contrast FINDINGS: CT CHEST: Extensive coronary artery calcifications. Atherosclerosis of the thoracic aorta without aneurysm. CT ABDOMEN/PELVIS: Atherosclerosis of the aorta. 5Added per [employer] Worker Review-JW-04/24/24 Diagnosis Diagnosis Type Effective Dates Health Status Cl inical Service Informant Cellulitis, leg Discharge Diagnosis 08/12/24 Non-Specified Procedures Procedure Date Related Diagnosis Body Site Status DXA BONE DENSITY STUDY 06/21/22 Co mpleted Stool DNA-based colorectal c ancer screening 1 05/27/[address] of chest, abdomen and pelvis 2 09/26/[address] of head 3 09/26/21 Completed Chest X-ray 4 07/11/[address] of head 5 07/11/21 Completed Venous doppler ultrasonography 6 07/11/21 Completed Bone density scan report- De nsitometry 7 05/21/19 Completed Knee X-ray RT 3V 8 01/02/19 Comple mary carmen Shoulder X-ray 9 11/23/17 Complete d DEXA scan 10 12/13/16 Completed Doppler 11 09/30/16 Completed Hip X-ray 12 05/13/16 Completed Mammogram - screening 13, 14 12/31/15 Completed Chest x-ray 15 05/28/[address] angiography of thorax 16 05/28/[address] of abdomen and pelvis wit h contrast 17 05/28/15 Completed Doppler ultrasonography of a rterial inflow and venous outflow of abdominal, pelvic and retroperitoneal organs 18 04/30/[address] of abdomen and pelvis 19 04/14/[address] of chest 20 04/14/15 Completed Doppler ultrasonography of a rterial inflow and venous outflow of abdominal, pelvic and retroperitoneal organs 21 04/14/15 Completed Cardiac echo 22 03/20/15 Completed Chest x-ray 23 03/20/15 Completed EKG 24 03/20/15 Completed Punch biopsy 01/28/15 Completed MRI of lumbar spine 25 01/15/14 Co mpleted MRI of lumbar spine 26 01/15/14 Co mpleted COLONOSCOPY--One Tubular Adenoma 27 01/25/12 Completed ECHO-- WNL 28 04/19/11 Completed RAFFY 04/19/11 Completed LEFT Modified Radical Mastectomy 11/05/04 Completed RIGHT Modified Radical Maste ctomy RIGHT 06/07/86 Completed Hip DEXA scan 29 Complete d 1Negative. 2IMPRESSION: 1. Subtle acute nondisplaced fractures of the anterior right fourth, fifth and sixth ribs. Possibletiny right basilar pneumothorax, suboptimally visualized secondary to respiratory motion artifact. 2. 1.1 x 0.6 cm subcutaneous nodule of the right upper chest wall is suggestive of a small hematomaconsidering patient history of recent trauma. A lymph node could appear similarly however is considered less likely. 3. Cardiomegaly with pulmonary edema and trace pleural effusions. 4. No acute solid organ injury. 5. Mild to moderate symmetric hydroureteronephrosis with bilateral urinary bladder diverticula. 6. The cervix is distended and fluid-filled. Correlation with pelvic examination recommended to exclude an obstructing vaginal lesion. 7. Additional findings as above. 3IMPRESSION: No acute intracranial abnormality or calvarial fracture. 4impression: No significant change compared to the prior study. No acute process. Stable cardiomegaly 5Impression: No segnificant change compared to the prior study. No acute intracranial abnormality 6Impression: There is no evidence of deep venous thrombus within the right lower extremity 7Assessment: BMD measured at femur neck left is 0.965 g/cm T-score of -0.5. BMD measured at femur neck right is 0.862 g/cm T-score of -1.3. BMD measured at femur total mean is 0.998 g/cm T-score of -0.1 BMD measured at forearm radius 33% is 0.709 g/cm T-score of 0.1 8Impression: 1. No acute fracture. 2. Moderate tricompartmental osteoarthritis of the right knee. 9Mild degenerative change right shoulder. Postop soft tissue change right axilla. No acute process. 10Tscore; Left femur neck -0.7, Right femur neck -1.2, forearm -0.1. Zscore 1.0, slightly higer than normal for age/sex. Unable to use AP spine for analysis due to high density readings. Repeat December 2018 11no definite DVT within the visualized right lower extremity 12minimal arthritis of left hip no fracture 13DID NOT have mammography (s/p mastectomy) - sees oncology yearly for screening 14WNL - 1 yr 15Interval development of moderate interstitial pulmonary edema 16No central pulmonary emboli. Lobar and segmental pulmonary arteries suboptimally assessed due to significant respiratory motion artifact. Moderate interstitial and alveolar pulmonary edema 17Interlobular sefptal thickening within the lung bases favors pulmonary edema. No bowel wall thickening or obstruction. No renal stones or hydronephrosis. Levoscoliosis and severe degenerative disc disease within the lumbar spine. Moderate well-formed stool within the rectum 18persisten extensive riht lower extremity DVT. Slight iinterval decreased in the thrombus diameter at the level of the common femoral vein. Improving flow within the proximal triturcation veins of thecalf 191. Thrombus wihtin the right femoral veins 2. No acute porcess in the abdomen or pelvis other than noted. 201. No evidence for metastatic disease within the chest. 2. An 11 mm groundglass nodule within the right lung apex. This could represnt an area of scarring.However, recommended [address] follow up to ensure. 3. A 6 mm sclerotic focus at t8. this may represnt a bone island. this also bears watching on future examinations 21extensive DVT wtihin the right lwoer extremity 22MN - see report 23ER DVT 24ER DVT 25lenghty report 26See EMR 27Repeat in 5 years 28Mild TR, Normal EF 29osteopenic Social History Social History Type Response Smoking Status Never smoked cigaret ashok Sex Female Sex Representation Female (finding) FCM Outpt Note * DANIELLA Barksdale, Benita Todd: PERFORM Event Display: FCM Outpt Note Authored Date: [id number] TeleHealth Visit Note I have confirmed the patients name and date of . The patient has consented to this service,and I have advised the patient that this is a billable visit for which they may be subject to a copay. The patient initiated this visit after they were informed of the availability of TeleHealth for this medically necessary visit. I am located at my office. The patient is located at home. This visit was conducted via live audio/video technology via [employer]. Chief Complaint SHe had cellulitis in R leg 2 years ago. Now R leg is seeping, sock is getting wet. Concerned she is gettng cellulitis again. There is a small wound, dime sized. Her calf on that side is hotand red. History of Present Illness Patient is a 88yo female evaluated today via telehealth. Patient scheduled through triage [facility] today. Daughter originallycalled as hermomis worriedaboutpossible cellulitisof herleft lowerleg. ApparentlyDorothynoted a few days ago that her sock was wet with "clear" drainage. Injury is possible antecedentas patient states she shut the car door on that leg in the past with scab d eveloped. She was itching her leg and pulled the scab off. The left leg is erythematous and daughter feels that is has been warmer to the touch as well.No fevers. No pain. She has been applying OTC lotion but no topical antibiotics or treatments Review of Systems ROS Per HPI Physical Exam General: No acute distress. Speaking in full sentences. Doesn't appear anxious or upset. HEENT: Conjunctivae clear. No discharge noted from eyes. No nasal discharge. No congestion appreciated. No swelling noted in face/ lips. No visible neck masses/ JVD. Respiratory: Good inspiratory effort, no use of accessory muscles. No labored breathing. No audible wheezing. Skin: No rash visible on exposed skin areas. Small area of erythema surrounding open scab on the left lower leg. No edema, discharge or bleeding Neuro: Alert & oriented x 3. Logical thought process. Psych: Normal affect & mood Assessment/Plan 1.Cellulitis, leg STATUS:Acute, uncomplicated illness/injury Patient is a 88yo female evaluated today via telehealth. Patient scheduled through triage line earlier today. Daughter originallycalled as farzadomis worriedaboutpossible cellulitisof herleft lowerleg. ApparentlyDorothynoted a few days ago that her sock was wet with "clear" drainage. Injury is possible antecedentas patient states she shut the car door on that leg in the past with scab d eveloped. She was itching her leg and pulled the scab off. The left leg is erythematous and daughter feels that is has been warmer to the touch as well.No fevers. No pain. She has been applying OTC lotion but no topical antibiotics or treatments DATA:Labs reviewed. GOAL:Maintain stability. PLAN:Cont current monitoring. Keep area clean May use Vaseline topically Cephalexin mg three times daily x 5 days ER precautions discussed in detail. Problem List/Past Medical History Ongoing Adult BMI 40.0-44.9 kg/sq m Ambulatory dysfunction ANXIETY Arteriosclerosis of aorta Carpal tunnel syndrome, bilateral CATARACT Chronic deep vein thrombosis (DVT) of lower extremity Class 3 severe obesity due to excess calories with body mass index (BMI) of 40.0 to 44.9 in adult Depression, major Depression, major, recurrent Disorder of adrenal gland, unspecified GERD without esophagitis Hip arthritis HTN (hypertension) Intertrigo Left carpal tunnel syndrome Lumbar spinal stenosis OA - Osteoarthritis of spine Osteoporosis Pulmonary hypertension RVH - Right ventricular hypertrophy Subclinical hypothyroidism VITAMIN D DEFICIENCY Weight disorder Resolved Active DVT Acute upper respiratory infection Allergic reaction Annual physical exam Back muscle spasm Cancer CVA Gastritis GERD with esophagitis Hypertensive urgency Left buttock pain Lower back pain Medicare annual wellness visit, subsequent Mid back pain Muscle spasm Pain in left shoulder Piriformis syndrome Right leg DVT Right otitis externa SVT - Supraventricular tachycardia Thyroid URTICARIA Procedure/Surgical History DXA BONE DENSITY STUDY| Service Date: 06/21/2022tool DNA-based colorectal cancer screening| Service Date: 2CT of chest, abdomen and pelvis| Service Date: 09/26/2021T of head| Service Date: 09/26/2021T of head| Service Date: 07/11/2021hest X-ray| Service Date: 07/11/2021Venous doppler ultrasonography| Service Date: 07/11/2021one density scan report- Densitometry| Service Date: 05/21/2019Knee X-ray RT 3V| Service Date: 01/02/2019Shoulder X-ray| Service Date: 11/23/2017DEXA scan| Service Date: 12/13/2016Doppler| Service Date: 09/30/2016Hip X-ray| Service Date: 05/13/2016Mammogram - screening| Service Date: 12/31/2015Chest x-ray| Service Date: 05/28/2015CT angiography of thorax| Service Date: 05/28/2015CT of abdomen and pelvis with contrast| Service Date: 05/28/2015Doppler ultrasonography of arterial inflow and venous outflow of abdominal, pelvic and retroperitoneal organs| Service Date: 04/30/2015Doppler ultrasonography of arterial inflow and venous outflow of abdominal, pelvic and retroperitoneal organs| Service Date: 04/14/2015CT of abdomen and pelvis| Service Date: 04/14/2015CT of chest| Service Date: 04/14/2015Cardiac echo| Service Date: 03/20/2015Chest x-ray| Service Date: 03/20/2015EKG| Service Date: 03/20/2015Punch biopsy| Service Date: 01/28/2015MRI of lumbar spine| Service Date: 01/15/2014MRI of lumbar spine| Service Date: 01/15/2014COLONOSCOPY--One Tubular Adenoma| Service Date: 01/25/2012TEE| Service Date: 04/19/2011ECHO-- WNL| Service Date: 04/19/2011LEFT Modified Radical Mastectomy| Service Date: 11/05/2004RIGHT Modified Radical Mastectomy RIGHT| Service Date: 06/07/1986Hip DEXA scan Medications calcium carbonate(calcium (as carbonate) 600 mg oral tablet), Daily cephalexin(cephalexin 500 mg oral capsule), 500 mg= 1 cap, PO, tid cholecalciferol(Vitamin D3 2000 intl units oral tablet), 2000 Int_Unit= 1 tab, PO, Daily famotidine(famotidine 40 mg oral tablet), 40 mg= 1 tab, PO, Daily, 2 refills levothyroxine(levothyroxine 100 mcg (0.1 mg) oral tablet), 100 mcg= 1 tab, PO, Daily, 4 refills lisinopril(lisinopril 5 mg oral tablet), 5 mg= 1 tab, PO, Daily, 4 refills metoprolol(Toprol-XL 100 mg oral tablet, extended release), 100 mg= 1 tab, PO, Daily, 4 refills multivitamin with minerals(Vitamin D with Minerals oral tablet, chewable), 1 tab, PO, Daily nystatin topical(nystatin 100,000 units/g topical powder), 1 appl, topical, tid, 3 refills omalizumab(Xolair) rivaroxaban(Xarelto 20 mg oral tablet), 20 mg= 1 tab, PO, qPM, 4 refills sertraline(sertraline 100 mg oral tablet), 100 mg= 1 tab, PO, Daily, 4 refills simvastatin(simvastatin 20 mg oral tablet), 20 mg= 1 tab, PO, qhs, 4 refills Allergies CalanHA SudafedSVT Voltarenhives buPROPionnausea hydrochlorothiaziderash/hives sulfamethoxazolerash Social History Smoking Status Never smoked cigarettes Alcohol - Low Risk Type:Wine Frequency:1-2 times per month Employment/School Status:Retired 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 High Blood Pressure: Mother. Health Status Family Member(s) Family Member(s) Relationship: Father, Age: 80 Years, Cause: UNKNOWN--no ocntact Immunizations Vaccine Date Status influenza virus vaccine, inactivated 04/27/2023 Given influenza virus vaccine, inactivated 08/12/2021 Given SARS-CoV-2 (COVID-19) mRNA BNT-162b2 vax 05/17/2021 Recorded Comments : 2022-01-13: Historical information-source unspecified SARS-CoV-2 (COVID-19) mRNA BNT-162b2 vax 04/26/2021 Recorded Comments : 2021-05-06: Historical information-source unspecified tetanus/diphtheria/pertuss, acel (Tdap) 08/27/2019 Given zoster vaccine, inactivated 08/27/2019 Given tetanus/diphtheria/pertuss, acel (Tdap) - Not Given Comments : Patient Refuses pt left before shot could be given zoster vaccine, inactivated 06/13/2019 Given influenza virus vaccine, inactivated 05/15/2019 Given influenza virus vaccine, inactivated 05/01/2018 Given influenza virus vaccine, inactivated 04/17/2017 Given influenza virus vaccine, inactivated 06/01/2016 Given influenza virus vaccine, inactivated 04/17/2015 Given pneumococcal 13-valent vaccine 09/12/2014 Given influenza virus vaccine, inactivated 05/27/2014 Given influenza virus vaccine, inactivated 05/01/2012 Given zoster vaccine live 08/07/2010 Recorded tetanus/diphtheria/pertuss, acel (Tdap) 06/17/2007 Recorded Comments : 2021-03-18: Historical information-source unspecified tetanus/diphtheria/pertuss, acel (Tdap) 10/07/2006 Recorded pneumococcal 23-valent vaccine 06/13/2005 Recorded tetanus/diphtheria/pertuss, acel (Tdap) 06/13/2005 Recorded tetanus/diphtheria/pertuss, acel (Tdap) 06/13/2005 Recorded influenza virus vaccine, inactivated 08/07/2003 Recorded influenza virus vaccine, inactivated 08/07/2003 Recorded influenza virus vaccine, inactivated 08/07/2003 Recorded influenza virus vaccine, inactivated 08/07/2003 Recorded Recommendations Health Maintenance Pending(in the next year) OverDue Adult Influenza Vaccine due02/05/24and every 1year Due Adult COVID-19 Vaccination due08/12/24Unknown Frequency Adult Social Determinants of Health Screening due08/12/24Unknown Frequency Due In Future Medicare Annual Wellness Visit not due until01/10/25and every 1year Falls Plan of Care not due until04/17/25and every 1year Body Mass Index not due until05/10/25and every 366 Satisfied(in the past 1 year) Satisfied Body Mass Index on04/19/24.Satisfied by INGRID Mccoy Vanessa T Lipid Screening on01/18/24.Satisfied by Contributor_system, [employer] Medicare Annual Wellness Visit on01/11/24.Satisfied by MD Sanabria Christopher Electronic Signature on File Electronically Reviewed/Signed by: Benita Barksdale PA-C Author Signature Dt/Tm:08/12/2024 02:06 PM Department of Family Medicine [facility] Patient Care team information Care Team Personnel Name: REZA Hilton Tara Position: Nurse Pract - Family Med Member Role: Lifetime Relationship Address: [address] [place] [address] [place] Name: MD Sanabria Christopher Position: Physician - Family Med Member Role: Primary Care Provider Address: [facility] [place] [address] [place] Care Team Related Persons Name: SACHA WRIGHT Name: NORBERTO MENDENHALL
--- NOTE | 2024-09-11 09:06 | Electrocardiogram Report ---
Test Reason : Blood Pressure : */* mmHG Vent. Rate : 69 BPM Atrial Rate : 69 BPM P-R Int : 168 ms QRS Dur : 90 ms QT Int : 420 ms P-R-T Axes : 49 -46 38 degrees QTcB Int : 450 ms Poor data quality, interpretation may be adversely affected Sinus rhythm Left anterior fascicular block Nonspecific T wave abnormality Anterior leads Abnormal ECG When compared with ECG of 14-Sep-2022 17:38, No significant change Confirmed by Sanchez Mathur ([id number] on 09/11/2024 9:05:49 AM Referred By: REFERRED SELF Confirmed By: Sanchez Mathur
[2024-09-11] MEDS: lisinopril 5 MG TAB PO SCH (09:12)
[2024-09-11] MEDS: SERTRALINE HCL 100 MG TABLET PO SCH (09:12)
[2024-09-11] MEDS: METOPROLOL SUCC 50MG EXT REL TAB PO SCH (09:13)
[2024-09-11] MEDS: LEVOTHYROXINE SODIUM 100 MCG TABLET PO SCH (09:13)
[2024-09-11] MEDS: INFLUENZA VACC TS2024-25(65y+)/PF (IIV3) 0.5mL Syr IM ONE (10:17)
[2024-09-11] MEDS: SODIUM CHLOR 7% 4 ML NEB NEB SCH (20:23)
[2024-09-11] MEDS: RIVAROXABAN 20 MG TAB PO SCH (21:09)
[2024-09-11] MEDS: SIMVASTATIN 20 MG TAB PO SCH (21:09)
[2024-09-11] MEDS: BENZONATATE 100 MG CAPSULE PO PRN (21:09)
[2024-09-12] MEDS: ONDANSETRON INJ 2 MG/ML 2 ML VIAL IV PRN (02:49)
[2024-09-12] MEDS: ACETAMINOPHEN 325 MG TAB PO PRN (03:18)
[2024-09-12] MEDS: ALBUTEROL 0.5% NEB SOLN 2.5 MG/0.5 ML VIAL NEB PRN (03:47)
[2024-09-12 09:03] LABS: Hematocrit (blood only) 37.4 % (37.0-47.0); Mean Corpuscular Hemoglobin 30.7 pg (25.0-34.0); Mean Corpuscular Hgb Conc 32.1 g/dL (32.0-36.0); Mean Corpuscular Volume 95.7 fL (80.0-100.0); Mean Platelet Volume 10.3 fL (9.4-12.4); Platelet Count 103 K/uL (130-400); RDW Coefficient of Variation 14.6 % (11.5-14.5); RDW Standard Deviation 50.9 fL (36.4-46.3); Red Blood Count 3.91 M/uL (4.20-5.40); White Blood Count 6.18 K/ul (4.8-10.8)
[2024-09-12 10:05] LABS: C Reactive Protein 4.96 mg/dl (0-0.5); Calcium 8.4 mg/dl (8.6-10.3); Creatinine Clr Calc Pharmacy 42.9 ml/min; Potassium 3.4 mmol/L (3.5-5.1)
--- NOTE | 2024-09-12 22:40 | Hospitalist Progress Note ---
Date of Service September 12, 2024 Assessment & Plan (1) Hypoxia: Plan: 88yo female presenting with 3-4 days of progressive cough and SOB as well as generalized weakness, ambulatory dysfunction, poor appetite and decreased oral intake. Found to have Human Metapneumovirus infection Hypoxic per EMS on arrival at 83% on RA - now on NC with adequate oxygenation -Admit to medical -Maintain isolation precautions -Continue supplemental O2 as needed -appears to be mainly viral, will monitor, hold antibiotics plaxced on hypertonic saline, -Tylenol PRN -Albuterol PRN -Tessalon PRN -Zofran PRN -PT/OT evaluation for generalized weakness and ambulatory dysfunction EKG with no ischemic changes #acute hospital acquired delirium will limit benzo use may consider seroquel if needed. continue supportive care updated case management discussed with patient's daughters Plan Hypothyroidism - chronic, stable -Continue Synthroid 100mcg po daily Hypertension - chronic, stable -Continue Lisinopril 5mg po daily -Continue Metoprolol 100mg po daily History of DVT - chronic, stable -Continue Xarelto 20mg po qPM Anxiety - chronic, stable -Continue Sertraline 100mg po daily Hyperlipidemia - chronic, stable -Continue Simvastatin 20mg po qHS F/E/N - saline lock, encourage fluids, electrolytes WNL, regular diet as tolerated Ppx - Continue Xarelto Code - Full per discussion with patient Dispo - Admit to medical Admission and Anticipated Discharge Date Admission Date: September 11, 2024 Subjective Patient has been intermittently confused. Physical Exam Physical Exam: General: patient resting comfortably, NAD, non-toxic in appearance, AA&O x 4 Skin: warm, dry, intact, no rashes or lesions HEENT: NC/AT, PERRL, EOMI Heart: +S1/S2, regular, no m/r/g Lungs: equal air entry bilaterally, coarse breath sounds bilaterally, no wheezes or rales Abd: +BS, soft, NT/ND, no masses/organomegaly/ascites Results & Data Results & Data Vital Signs (Past 12 Hours) Vital Signs Temp Pulse Resp BP Pulse Ox Pulse Ox O2 Del Method 09/12/24 21:31 125/60 09/12/24 21:18 37.2 C 65 22 96 Nasal Cannula 09/12/24 19:15 Nasal Cannula 09/12/24 18:01 69 18 97 Nasal Cannula 09/12/24 15:57 37.2 C 62 16 95/59 L 95 Room Air 09/12/24 11:55 96 O2 Flow Rate O2 Flow Rate 09/12/24 21:31 09/12/24 21:18 3 09/12/24 19:15 2 09/12/24 18:01 2 09/12/24 15:57 09/12/24 11:55 2 PG Care Time/CCT Total # of Minutes Spent Total Time Spent with Patient: Total time spent is greater than 50% in coordination of care (as documented) at patient's floor/unit and/or counseling patient: Coding Level of Care Code 91321 SUB INP/OBS CARE 3/50MIN Diagnoses Hypoxia R09.02
[2024-09-13 09:50] LABS: Hemoglobin 10.7 g/dl (12.0-16.0); Mean Corpuscular Hemoglobin 30.6 pg (25.0-34.0); Mean Corpuscular Hgb Conc 32.4 g/dL (32.0-36.0); Mean Corpuscular Volume 94.3 fL (80.0-100.0); Mean Platelet Volume 10.5 fL (9.4-12.4); Platelet Count 105 K/uL (130-400); RDW Coefficient of Variation 14.6 % (11.5-14.5); RDW Standard Deviation 50.7 fL (36.4-46.3); White Blood Count 4.86 K/ul (4.8-10.8)
[2024-09-13 10:16] LABS: BUN Creatinine Ratio 29.3 (10-20); C Reactive Protein 12.45 mg/dl (0-0.5); Calcium 8.1 mg/dl (8.6-10.3); Creatinine Clr Calc Pharmacy 43.3 ml/min; Potassium 3.7 mmol/L (3.5-5.1)
--- NOTE | 2024-09-13 23:06 | Hospitalist Progress Note ---
Date of Service September 13, 2024 Assessment & Plan (1) Hypoxia: Plan: 88yo female presenting with 3-4 days of progressive cough and SOB as well as generalized weakness, ambulatory dysfunction, poor appetite and decreased oral intake. Found to have Human Metapneumovirus infection Hypoxic per EMS on arrival at 83% on RA - now on NC with adequate oxygenation -Admit to medical -Maintain isolation precautions -appears to be mainly viral, will monitor, off antibiotics placed on hypertonic saline, remains on 2 liters, PT recommending SNF> -Tylenol PRN -Albuterol PRN -Tessalon PRN -Zofran PRN -PT/OT evaluation for generalized weakness and ambulatory dysfunction EKG with no ischemic changes #acute hospital acquired delirium will limit benzo use may consider seroquel if needed. continue supportive care. appears to have improved on 09/13 updated case management discussed with patient's daughters Plan Hypothyroidism - chronic, stable -Continue Synthroid 100mcg po daily Hypertension - chronic, stable -Continue Lisinopril 5mg po daily -Continue Metoprolol 100mg po daily History of DVT - chronic, stable -Continue Xarelto 20mg po qPM Anxiety - chronic, stable -Continue Sertraline 100mg po daily Hyperlipidemia - chronic, stable -Continue Simvastatin 20mg po qHS F/E/N - saline lock, encourage fluids, electrolytes WNL, regular diet as tolerated Ppx - Continue Xarelto Code - Full per discussion with patient Dispo - Admit to medical Admission and Anticipated Discharge Date Admission Date: September 12, 2024 Subjective Patient reports feeling better, still on 2 liters nasal cannula. She has no new complaints. Daughter at bedside, reports she is not confused. Physical Exam Physical Exam: General: patient resting comfortably, NAD, non-toxic in appearance, AA&O x 4 Skin: warm, dry, intact, no rashes or lesions HEENT: NC/AT, PERRL, EOMI Heart: +S1/S2, regular, no m/r/g Lungs: equal air entry bilaterally, coarse breath sounds bilaterally, no wheezes or rales Abd: +BS, soft, NT/ND, no masses/organomegaly/ascites Results & Data Results & Data Vital Signs (Past 12 Hours) Vital Signs Temp Pulse Resp BP BP Pulse Ox O2 Del Method 09/13/24 20:48 36.7 C 65 22 104/63 95 Nasal Cannula 09/13/24 20:45 Nasal Cannula 09/13/24 19:38 80 19 96 Nasal Cannula 09/13/24 14:43 37.5 C 67 16 123/74 95 Nasal Cannula O2 Flow Rate 09/13/24 20:48 3 09/13/24 20:45 2 09/13/24 19:38 2 09/13/24 14:43 2 PG Care Time/CCT Total # of Minutes Spent Total Time Spent with Patient: Total time spent is greater than 50% in coordination of care (as documented) at patient's floor/unit and/or counseling patient: Coding Level of Care Code 58532 SUB INP/OBS CARE 2/35MIN Diagnoses Hypoxia R09.02
[2024-09-14 07:23] LABS: Hematocrit (blood only) 34.4 % (37.0-47.0); Hemoglobin 11.1 g/dl (12.0-16.0); Mean Corpuscular Hemoglobin 30.4 pg (25.0-34.0); Mean Corpuscular Hgb Conc 32.3 g/dL (32.0-36.0); Mean Corpuscular Volume 94.2 fL (80.0-100.0); Mean Platelet Volume 10.5 fL (9.4-12.4); Platelet Count 116 K/uL (130-400); RDW Coefficient of Variation 14.4 % (11.5-14.5); RDW Standard Deviation 49.3 fL (36.4-46.3); Red Blood Count 3.65 M/uL (4.20-5.40); White Blood Count 5.09 K/ul (4.8-10.8)
[2024-09-14 07:32] LABS: BUN Creatinine Ratio 27.8 (10-20); C Reactive Protein 15.19 mg/dl (0-0.5); Calcium 8.2 mg/dl (8.6-10.3); Creatinine Clr Calc Pharmacy 59.6 ml/min
--- NOTE | 2024-09-14 23:21 | Hospitalist Progress Note ---
Date of Service September 14, 2024 Assessment & Plan (1) Hypoxia: Plan: 88yo female presenting with 3-4 days of progressive cough and SOB as well as generalized weakness, ambulatory dysfunction, poor appetite and decreased oral intake. Found to have Human Metapneumovirus infection Hypoxic per EMS on arrival at 83% on RA - now on NC with adequate oxygenation -Admit to medical -Maintain isolation precautions -appears to be mainly viral, will monitor, off antibiotics placed on hypertonic saline, now on room air PT recommending SNF> -Tylenol PRN -Albuterol PRN -Tessalon PRN -Zofran PRN -PT/OT evaluation for generalized weakness and ambulatory dysfunction EKG with no ischemic changes #acute hospital acquired delirium will limit benzo use may consider seroquel if needed. continue supportive care. appears to have improved on 09/13, remains well on 09/14 updated case management discussed with patient's daughters Plan Hypothyroidism - chronic, stable -Continue Synthroid 100mcg po daily Hypertension - chronic, stable -Continue Lisinopril 5mg po daily -Continue Metoprolol 100mg po daily History of DVT - chronic, stable -Continue Xarelto 20mg po qPM Anxiety - chronic, stable -Continue Sertraline 100mg po daily Hyperlipidemia - chronic, stable -Continue Simvastatin 20mg po qHS F/E/N - saline lock, encourage fluids, electrolytes WNL, regular diet as tolerated Ppx - Continue Xarelto Code - Full per discussion with patient Dispo - Admit to medical Admission and Anticipated Discharge Date Admission Date: September 12, 2024 Subjective Patient reports no new symptoms. Physical Exam Physical Exam: General: patient resting comfortably, NAD, non-toxic in appearance, AA&O x 4 Skin: warm, dry, intact, no rashes or lesions HEENT: NC/AT, PERRL, EOMI Heart: +S1/S2, regular, no m/r/g Lungs: equal air entry bilaterally, coarse breath sounds bilaterally, no wheezes or rales Abd: +BS, soft, NT/ND, no masses/organomegaly/ascites Results & Data Results & Data Vital Signs (Past 12 Hours) Vital Signs Temp Pulse Resp BP Pulse Ox O2 Del Method 09/14/24 20:46 37 C 65 18 114/68 93 Room Air 09/14/24 20:20 72 18 93 Room Air 09/14/24 14:49 36.7 C 70 16 129/79 91 Room Air PG Care Time/CCT Total # of Minutes Spent Total Time Spent with Patient: Total time spent is greater than 50% in coordination of care (as documented) at patient's floor/unit and/or counseling patient: Coding Level of Care Code 94278 SUB INP/OBS CARE 2/35MIN Diagnoses Hypoxia R09.02
[2024-09-15] MEDS: NYSTATIN POWDER 15GM BTL EXT SCH (05:57)
--- NOTE | 2024-09-15 23:21 | Hospitalist Progress Note ---
Date of Service September 15, 2024 Assessment & Plan (1) Hypoxia: Plan: 88yo female presenting with 3-4 days of progressive cough and SOB as well as generalized weakness, ambulatory dysfunction, poor appetite and decreased oral intake. Found to have Human Metapneumovirus infection Hypoxic per EMS on arrival at 83% on RA - now on NC with adequate oxygenation -Admit to medical -Maintain isolation precautions -appears to be mainly viral, will monitor, off antibiotics placed on hypertonic saline, now on room air PT recommending SNF> -Tylenol PRN -Albuterol PRN -Tessalon PRN -Zofran PRN -PT/OT evaluation for generalized weakness and ambulatory dysfunction EKG with no ischemic changes #acute hospital acquired delirium will limit benzo use may consider seroquel if needed. continue supportive care. appears to have improved on 09/13, remains well on 09/14-09/15 updated case management discussed with patient's daughters Plan Hypothyroidism - chronic, stable -Continue Synthroid 100mcg po daily Hypertension - chronic, stable -Continue Lisinopril 5mg po daily -Continue Metoprolol 100mg po daily History of DVT - chronic, stable -Continue Xarelto 20mg po qPM Anxiety - chronic, stable -Continue Sertraline 100mg po daily Hyperlipidemia - chronic, stable -Continue Simvastatin 20mg po qHS F/E/N - saline lock, encourage fluids, electrolytes WNL, regular diet as tolerated Ppx - Continue Xarelto Code - Full per discussion with patient Dispo - Admit to medical Admission and Anticipated Discharge Date Admission Date: September 12, 2024 Subjective 88 yo female reports no new complaints. Continues with a cough. Physical Exam Physical Exam: General: patient resting comfortably, NAD, non-toxic in appearance, AA&O x 4 Skin: warm, dry, intact, no rashes or lesions HEENT: NC/AT, PERRL, EOMI Heart: +S1/S2, regular, no m/r/g Lungs: equal air entry bilaterally, coarse breath sounds bilaterally, no wheezes or rales Abd: +BS, soft, NT/ND, no masses/organomegaly/ascites Results & Data Results & Data Vital Signs (Past 12 Hours) Vital Signs Temp Pulse Resp BP Pulse Ox O2 Del Method 09/15/24 20:01 62 18 91 Room Air 09/15/24 19:44 36.7 C 63 19 117/70 92 Room Air 09/15/24 19:35 Room Air 09/15/24 14:49 36.7 C 60 16 143/75 H 92 Room Air PG Care Time/CCT Total # of Minutes Spent Total Time Spent with Patient: Total time spent is greater than 50% in coordination of care (as documented) at patient's floor/unit and/or counseling patient: Coding Level of Care Code 40598 SUB INP/OBS CARE 2/35MIN Diagnoses Hypoxia R09.02
--- NOTE | 2024-09-16 07:07 | Hospitalist Progress Note ---
Date of Service September 15, 2024 Assessment & Plan (1) Hypoxia: Plan: 88yo female presenting with 3-4 days of progressive cough and SOB as well as generalized weakness, ambulatory dysfunction, poor appetite and decreased oral intake. Found to have Human Metapneumovirus infection Hypoxic per EMS on arrival at 83% on RA - now on NC with adequate oxygenation Human metapneumovirus pneumonia -Admit to medical -Maintain isolation precautions -appears to be mainly viral, will monitor, off antibiotics placed on hypertonic saline, now on room air PT recommending SNF> -Tylenol PRN -Albuterol PRN -Tessalon PRN -Zofran PRN -PT/OT evaluation for generalized weakness and ambulatory dysfunction EKG with no ischemic changes #acute hospital acquired delirium/sundowning will limit benzo use may consider seroquel if needed. continue supportive care. appears to have improved on 09/13, remains well on 09/14-09/15 Morbid obesity, BMI 41.5 kg/m*m BMI is 41.5 kg/m*m. recommend lifestyle modifications Risk Factor(s): Caloric intake > expenditure updated case management discussed with patient's daughters Plan Hypothyroidism - chronic, stable -Continue Synthroid 100mcg po daily Hypertension - chronic, stable -Continue Lisinopril 5mg po daily -Continue Metoprolol 100mg po daily History of DVT - chronic, stable -Continue Xarelto 20mg po qPM Anxiety - chronic, stable -Continue Sertraline 100mg po daily Hyperlipidemia - chronic, stable -Continue Simvastatin 20mg po qHS F/E/N - saline lock, encourage fluids, electrolytes WNL, regular diet as tolerated Ppx - Continue Xarelto Code - Full per discussion with patient Dispo - Admit to medical Admission and Anticipated Discharge Date Admission Date: September 12, 2024 Results & Data Results & Data Vital Signs (Past 12 Hours) Vital Signs Temp Pulse Resp BP Pulse Ox O2 Del Method 09/15/24 20:01 62 18 91 Room Air 09/15/24 19:44 36.7 C 63 19 117/70 92 Room Air 09/15/24 19:35 Room Air PG Care Time/CCT Total # of Minutes Spent Total Time Spent with Patient: Total time spent is greater than 50% in coordination of care (as documented) at patient's floor/unit and/or counseling patient: Coding Level of Care Code None Diagnoses Hypoxia R09.02
--- NOTE | 2024-09-16 08:35 | Hospitalist Progress Note ---
Date of Service September 16, 2024 Assessment & Plan (1) Hypoxia: Plan: 88yo female presenting with 3-4 days of progressive cough and SOB as well as generalized weakness, ambulatory dysfunction, poor appetite and decreased oral intake. Found to have Human Metapneumovirus infection Hypoxic per EMS on arrival at 83% on RA - now on room air Human metapneumovirus pneumonia -RLL changes on cxr concern for viral pneumonia was not started on antibiotics chest physiotherapy -PT/OT evaluation for generalized weakness and ambulatory dysfunction. recommend snf #acute hospital acquired delirium/sundowning will limit benzo use may consider seroquel if needed. continue supportive care. appears to have improved, remains well on 09/14-09/15 Morbid obesity, BMI 41.5 kg/m*m BMI is 41.5 kg/m*m. recommend lifestyle modifications Risk Factor(s): Caloric intake > expenditure updated case management discussed with patient's daughters Plan Hypothyroidism - chronic, stable -Continue Synthroid 100mcg po daily Hypertension - chronic, stable -Continue Lisinopril 5mg po daily -Continue Metoprolol 100mg po daily History of DVT - chronic, stable -Continue Xarelto 20mg po qPM Anxiety - chronic, stable -Continue Sertraline 100mg po daily Hyperlipidemia - chronic, stable -Continue Simvastatin 20mg po qHS Ppx - Continue Xarelto Code - Full per discussion with patient Admission and Anticipated Discharge Date Admission Date: September 12, 2024 Subjective pt with a mild productive cough, overall feels improved Physical Exam Physical Exam: pt is with mild scant wheezes cardiac is regular Results & Data Results & Data Vital Signs (Past 12 Hours) Vital Signs Temp Pulse Resp BP Pulse Ox O2 Del Method 09/16/24 07:46 97.5 F L 54 L 18 163/78 H 100 Room Air 09/16/24 07:24 82 18 95 Room Air Laboratory Results review cbc review chemistry PG Care Time/CCT Total # of Minutes Spent Total Time Spent with Patient: Total time spent is greater than 50% in coordination of care (as documented) at patient's floor/unit and/or counseling patient: Coding Level of Care Code 01921 SUB INP/OBS CARE 3/50MIN Diagnoses Hypoxia R09.02
[2024-09-16 08:39] LABS: Hematocrit (blood only) 37.5 % (37.0-47.0); Hemoglobin 12.1 g/dl (12.0-16.0); Mean Corpuscular Hemoglobin 30.4 pg (25.0-34.0); Mean Corpuscular Hgb Conc 32.3 g/dL (32.0-36.0); Mean Corpuscular Volume 94.2 fL (80.0-100.0); Mean Platelet Volume 10.1 fL (9.4-12.4); Platelet Count 173 K/uL (130-400); RDW Coefficient of Variation 13.6 % (11.5-14.5); RDW Standard Deviation 47.1 fL (36.4-46.3); Red Blood Count 3.98 M/uL (4.20-5.40); White Blood Count 4.96 K/ul (4.8-10.8)
[2024-09-16 09:01] LABS: Calcium 8.7 mg/dl (8.6-10.3); Potassium 3.9 mmol/L (3.5-5.1)
[2024-09-16] MEDS: DOCUSATE SODIUM 100 MG CAP PO PRN (12:12)
--- NOTE | 2024-09-17 11:26 | Hospitalist Progress Note ---
Date of Service September 17, 2024 Assessment & Plan (1) Hypoxia: Plan: 88yo female presenting with 3-4 days of progressive cough and SOB as well as generalized weakness, ambulatory dysfunction, poor appetite and decreased oral intake. Found to have Human Metapneumovirus infection Hypoxic per EMS on arrival at 83% on RA - now on room air Human metapneumovirus pneumonia -RLL changes on cxr concern for viral pneumonia was not started on antibiotics chest physiotherapy, continue mucolytics, consider one dose steroid but with delerium will hold -PT/OT evaluation for generalized weakness and ambulatory dysfunction. recommend snf #acute hospital acquired delirium/sundowning will limit benzo use may consider seroquel if needed. continue supportive care. appears to have improved, remains well on 09/14-09/15 Morbid obesity, BMI 41.5 kg/m*m BMI is 41.5 kg/m*m. recommend lifestyle modifications Risk Factor(s): Caloric intake > expenditure small area of fluid filled blister left upper medial thigh by wound care will continue to follow updated case management, ok to apply for auth Plan Hypothyroidism - chronic, stable -Continue Synthroid 100mcg po daily Hypertension - chronic, stable -Continue Lisinopril 5mg po daily -Continue Metoprolol 100mg po daily History of DVT - chronic, stable -Continue Xarelto 20mg po qPM Anxiety - chronic, stable -Continue Sertraline 100mg po daily Hyperlipidemia - chronic, stable -Continue Simvastatin 20mg po qHS Ppx - Continue Xarelto Code - Full per discussion with patient Admission and Anticipated Discharge Date Admission Date: September 12, 2024 Subjective pt with a mild productive cough, this is not bothersome to her feels coughing out mucus is good overall feels improved Physical Exam Physical Exam: pt continues with mild scant wheezes in all lung garcia cardiac is regular Results & Data Results & Data Vital Signs (Past 12 Hours) Vital Signs Temp Pulse Resp BP Pulse Ox O2 Del Method 09/17/24 11:02 Room Air 09/17/24 07:32 60 16 94 Room Air 09/17/24 07:17 97.9 F 56 L 18 150/76 H 91 Room Air PG Care Time/CCT Total # of Minutes Spent Total Time Spent with Patient: Total time spent is greater than 50% in coordination of care (as documented) at patient's floor/unit and/or counseling patient: Coding Level of Care Code 77335 SUB INP/OBS CARE MIN Diagnoses Hypoxia R09.02
[2024-09-17] MEDS: COUGH DROP (SUGAR FREE) LOZ 24 LOZ/1 BOX BUCCAL PRN (22:20)
--- NOTE | 2024-09-18 15:29 | Hospitalist Progress Note ---
Date of Service September 18, 2024 Assessment & Plan (1) Hypoxia: Plan: 88yo female presenting with 3-4 days of progressive cough and SOB as well as generalized weakness, ambulatory dysfunction, poor appetite and decreased oral intake. Found to have Human Metapneumovirus infection Hypoxic per EMS on arrival at 83% on RA - now on room air Human metapneumovirus pneumonia -RLL changes on cxr concern for viral pneumonia was not started on antibiotics chest physiotherapy, continue mucolytics, consider one dose steroid but with delerium will hold -PT/OT evaluation for generalized weakness and ambulatory dysfunction. recommend snf #acute hospital acquired delirium/sundowning will limit benzo use may consider Seroquel if needed. continue supportive care. appears to have improved, remains well on 09/14-09/15 Morbid obesity, BMI 41.5 kg/m*m small area of fluid filled blister left upper medial thigh by wound care will continue to follow updated case management, ok to apply for auth Plan Hypothyroidism - chronic, stable -Continue Synthroid 100mcg po daily Hypertension - chronic, stable -Continue Lisinopril 5mg po daily -Continue Metoprolol 100mg po daily History of DVT - chronic, stable -Continue Xarelto 20mg po qPM Anxiety - chronic, stable -Continue Sertraline 100mg po daily Hyperlipidemia - chronic, stable -Continue Simvastatin 20mg po qHS Ppx - Continue Xarelto Code - Full per discussion with patient Admission and Anticipated Discharge Date Admission Date: September 12, 2024 Subjective pt with a mild productive cough, this is not bothersome to her feels coughing out mucus is good overall feels improved Physical Exam Physical Exam: pt continues with mild scant wheezes in all lung garcia cardiac is regular Results & Data Results & Data Vital Signs (Past 12 Hours) Vital Signs Temp Pulse Resp BP Pulse Ox O2 Del Method 09/18/24 10:57 Room Air 09/18/24 08:18 60 18 93 Room Air 09/18/24 07:38 98.1 F 59 L 16 144/70 H 91 Room Air PG Care Time/CCT Total # of Minutes Spent Total Time Spent with Patient: Total time spent is greater than 50% in coordination of care (as documented) at patient's floor/unit and/or counseling patient: Coding Level of Care Code 61263 SUB INP/OBS CARE 2/35MIN Diagnoses Hypoxia R09.02
--- NOTE | 2024-09-19 10:06 | Hospitalist Progress Note ---
Date of Service September 19, 2024 Assessment & Plan (1) Hypoxia: Plan: 88yo female presenting with 3-4 days of progressive cough and SOB as well as generalized weakness, ambulatory dysfunction, poor appetite and decreased oral intake. Found to have Human Metapneumovirus infection Hypoxic per EMS on arrival at 83% on RA - now on room air Human metapneumovirus pneumonia -RLL changes on cxr concern for viral pneumonia chest physiotherapy, continue mucolytics, Patient feels clinically much improved -PT/OT evaluation for generalized weakness and ambulatory dysfunction. recommend snf #acute hospital acquired delirium/sundowning will limit benzo use may consider Seroquel if needed. continue supportive care. appears to have improved, Morbid obesity, BMI 41.5 kg/m*m small area of fluid filled blister left upper medial thigh by wound care will continue to follow Stable chronic conditions Hypothyroidism - chronic, stable -Continue Synthroid 100mcg po daily Hypertension - chronic, stable -Continue Lisinopril 5mg po daily -Continue Metoprolol 100mg po daily History of DVT - chronic, stable -Continue Xarelto 20mg po qPM Anxiety - chronic, stable -Continue Sertraline 100mg po daily Hyperlipidemia - chronic, stable -Continue Simvastatin 20mg po qHS Plan Ppx - Continue Xarelto Code - Full per discussion with patient Patient ready for d/c, awaiting bed availability Admission and Anticipated Discharge Date Admission Date: September 12, 2024 Subjective patient seen and examined, feels overall better, awaiting bed availability Review of Systems Review of Systems: All systems reviewed are negative, apart from the ones contained in the history. Physical Exam Physical Exam: The patient is awake, alert and oriented 3, well developed and well nourished, normocephalic and atraumatic, lying in bed and in no acute distress. HEENT--PERRL, EOMI, mucous membranes and oropharynx mildly dry Neck--supple. No JVD. No bruits. Thyroid normal, trachea midline, no adenopathy. Heart--normal S1 and S2. No murmurs, rubs or gallops. Lungs--clear bilaterally, no respiratory distress, no accessory muscle use. Abdomen--normal bowel sounds and soft. Extremities--no cyanosis or clubbing. No edema. Dermatologic--normal skin turgor, normal color, no abnormal lymph nodes, no rash. Neurologic--cranial nerves II through XII grossly intact. Rheumatologic--normal range of motion. Psychiatric--normal affect. Results & Data Results & Data Vital Signs (Past 12 Hours) Vital Signs Temp Pulse Resp BP Pulse Ox O2 Del Method 09/19/24 07:39 97.7 F 55 L 16 133/79 93 Room Air 09/19/24 07:23 52 L 16 94 Room Air PG Care Time/CCT Total # of Minutes Spent Total Time Spent with Patient: Total time spent is greater than 50% in coordination of care (as documented) at patient's floor/unit and/or counseling patient: Coding Level of Care Code 78195 SUB INP/OBS CARE 2/35MIN Diagnoses Hypoxia R09.02 Time Spent (min) 35
[2024-09-20 08:07] VITALS: RESP 16; TEMP 97.9; O2SAT 96
[2024-09-20 08:42] LABS: Hematocrit (blood only) 39.5 % (37.0-47.0); Hemoglobin 12.6 g/dl (12.0-16.0); Mean Corpuscular Hemoglobin 30.8 pg (25.0-34.0); Mean Corpuscular Hgb Conc 31.9 g/dL (32.0-36.0); Mean Corpuscular Volume 96.6 fL (80.0-100.0); Mean Platelet Volume 9.8 fL (9.4-12.4); Platelet Count 246 K/uL (130-400); RDW Coefficient of Variation 13.9 % (11.5-14.5); RDW Standard Deviation 49.4 fL (36.4-46.3); Red Blood Count 4.09 M/uL (4.20-5.40); White Blood Count 5.07 K/ul (4.8-10.8)
[2024-09-20 09:14] LABS: BUN Creatinine Ratio 27.5 (10-20); Creatinine Clr Calc Pharmacy 53.6 ml/min; Potassium 4.9 mmol/L (3.5-5.1)
[2024-09-20 09:43] VITALS: BP 102/68; PULSE 67
--- NOTE | 2024-09-20 10:06 | Discharge Summary ---
Date of Service September 20, 2024 Admission HPI Per Admitting Provider Mohini Sibley is an 88yo female with history of HTN, HLP, Hypothyroidsim, DVT on Xarelto anticoagulation presenting with cough, congestion and SOB. Patient has been having cough for the last 3-4 days - productive for clear to yellow sputum. She has had generalized weakness with difficulty ambulating, poor appetite and decreased oral intake. This evening patient developed worsening cough and SOB as well as some nausea which brought her to the ER. +sick contacts - family members with similar symptoms EMS reported hypoxia 83% on room air Admission Exam (Per Admitting) Constitutional The patient is awake, alert and oriented 3, well developed and well nourished, normocephalic and atraumatic, lying in bed and in no acute distress. HEENT--PERRL, EOMI, mucous membranes and oropharynx mildly dry Neck--supple. No JVD. No bruits. Thyroid normal, trachea midline, no adenopathy. Heart--normal S1 and S2. No murmurs, rubs or gallops. Lungs--clear bilaterally, no respiratory distress, no accessory muscle use. Abdomen--normal bowel sounds and soft. Extremities--no cyanosis or clubbing. No edema. Dermatologic--normal skin turgor, normal color, no abnormal lymph nodes, no rash. Neurologic--cranial nerves II through XII grossly intact. Rheumatologic--normal range of motion. Psychiatric--normal affect. Discharge Data Consultations 09/11/24 04:57 ED Decision to Admit Stat Hospital Course (1) Hypoxia: 88yo female presenting with 3-4 days of progressive cough and SOB as well as generalized weakness, ambulatory dysfunction, poor appetite and decreased oral intake. Found to have Human Metapneumovirus infection Hypoxic per EMS on arrival at 83% on RA - now on room air Human metapneumovirus pneumonia -RLL changes on cxr concern for viral pneumonia chest physiotherapy, continue mucolytics, Patient feels clinically much improved -PT/OT evaluation for generalized weakness and ambulatory dysfunction. recommend snf #acute hospital acquired delirium/sundowning will limit benzo use may consider Seroquel if needed. continue supportive care. appears to have improved, Morbid obesity, BMI 41.5 kg/m*m small area of fluid filled blister left upper medial thigh by wound care will continue to follow Stable chronic conditions Hypothyroidism - chronic, stable -Continue Synthroid 100mcg po daily Hypertension - chronic, stable -Continue Lisinopril 5mg po daily -Continue Metoprolol 100mg po daily History of DVT - chronic, stable -Continue Xarelto 20mg po qPM Anxiety - chronic, stable -Continue Sertraline 100mg po daily Hyperlipidemia - chronic, stable -Continue Simvastatin 20mg po qHS Plan Ppx - Continue Xarelto Code - Full per discussion with patient Patient ready for d/c, awaiting bed availability Coding Level of Care Code 06741 INP/OBS DISCH >30 MIN Diagnoses Hypoxia R09.02 Time Spent (min) 35
== END 2024-09-20 11:19 | DRG 194 ==
LOC: SUATTDRO → ED 03:12 → EDINP 03:12 → SUATTDRO 05:11 → 3W 08:28 → SUATTDRO 09-12 22:41